=== PATIENT | male | born 1955 | race Caucasian/White ===

== ENCOUNTER → 2020-01-30 07:40 | Outpatient (BNVA) | payer OTHER, SELFPAY | PROVIDERS: Family Provider Family Medicine; PCP Family Medicine; Referring Provider Family Medicine; Visit Provider Specialist | DX: G56.03 Carpal tunnel syndrome, bilateral upper limbs (principal) | CPT/HCPCS: 95910 ==

== ENCOUNTER → 2020-06-11 13:51 | Outpatient (BNVA) | payer OTHER, SELFPAY | PROVIDERS: Family Provider Family Medicine; PCP Family Medicine; Visit Provider Internal Medicine | DX: Z11.59 Encounter for screening for other viral diseases (principal) | CPT/HCPCS: 87635 ==

== ENCOUNTER 2020-06-13 05:45 | Day surgery (SDC) | payer OTHER, SELFPAY ==
[2020-06-12 10:37] VITALS: BMI 33.3
[2020-06-13 06:01] VITALS: BP 136/77; PULSE 55; RESP 16; TEMP 36.2; O2SAT 96
[2020-06-13] MEDS: sodium chloride 0.9% 1,000 ML 30 ML IV (06:24)
--- NOTE | 2020-06-13 06:26 | ANES.PREANE2 ---
Pre-Anesthetic Assessment Pre-Anesthetic Assessment: Height/Weight: Height 1.96 m Weight 127.459 kg Temp Pulse Resp BP Pulse Ox 97.1 F L 55 L 16 136/77 96 06/13/20 06:01 06/13/20 06:01 06/13/20 06:01 06/13/20 06:01 06/13/20 06:01 Preop Diagnosis: Right carpal tunnel syndrome Proposed Procedure: Operation Date: 06/13/20 07:00 Proposed Procedures p Carpal Tunnel Release/[id number] G56.03(Right) - Lucho Sanchez MD Last intake: Intake Last Liquid Date 06/13/20 Last Liquid Time 04:30 Last Solid Date 06/12/20 Last Solid Time 18:30 Social: Social History: Tobacco (chews) and No alcohol Exam: Pre-Anes Outpt Exam: alert, oriented x 3, clear to auscultation bilaterally and regular rate & rhythm Airway: Submandibular: WNL Cervical ROM: WNL MP: 2 Dentition: Full (dentures) History/ROS: No significant history except as noted Pulmonary: Pulmonary: None reported CV/HEM: CV/HEM: Afib and HTN : : None reported Hepatic: Hepatic: None reported GI: GI: GERD (occ) Metabolic: Metabolic: DM, Hyperlipidemia and Morbid obesity Musc/skel: Musc/skel: None reported Neuropsych: Neuropsych: Neuropathy (hands) Anesthetic Plan: ASA status: 3 Anesthesia: Anesthesia Evaluation, MAC and Regional (specify below) ([place] fier[place]) Risk of > 500 ml blood loss (7ml/kg in children): No Meds/Allergies Current Medications: Current Medications Generic Name Dose Route Start Last Admin Trade Name Freq PRN Reason Stop Dose Admin Sodium Chloride 1,000 mls @ 30 ml s/hr 06/13/20 06:00 06/13/20 06:24 Sodium Chloride 0.9% IV 06/14/20 05:59 30 mls/hr .Q24H ALVA Administration Data Anesthesia Cardiac Studies: No Data to Display
--- NOTE | 2020-06-13 06:57 | W.PM.OPSUD ---
Surgery/Procedure H&P Update DATE OF PROCEDURE: June 13, 2020 DATE H&P PERFORMED: 05/24/20 PREOP DIAGNOSIS: Right carpal tunnel syndrome PLANNED PROCEDURE: Operation Date: 06/13/20 07:00 Proposed Procedures p Carpal Tunnel Release/[id number] G56.03(Right) - Lucho Sanchez MD
--- NOTE | 2020-06-13 07:05 | SUR.PREOP ---
0637 spoke with lab regarding pending results on covid test and result will be in some time today,spoke with dr byrd and he stated that covid test didn't need to be done on elective case unless pt was symptomatic
--- NOTE | 2020-06-13 07:45 | PM.OP ---
Operative Report Date of procedure: June 13, 2020 Pre-op Diagnosis: Right carpal tunnel syndrome Post-op diagnosis: same Post-op Findings: Same Procedure Done: Right carpal tunnel syndrome Pathology: none sent Surgeon: Lucho Sanchez Anesthesia: Local ([place] block) Estimated blood loss (mL): 10 Tourniquet time (min): 19 Findings: No masses or space-occupying lesions were seen within the carpal tunnel Condition: stable Disposition: same day Procedure: Patient was taken to the operating room and anesthesia provided by the anesthesia service. She was prepped and draped with the arm exposed. A timeout was performed. A 3 cm long incision was made in line with the fourth ray from the distal edge of the carpal tunnel extending proximally. The subcutaneous fat and palmar fascia was divided with a scalpel blade. Under loupe magnification the ulnar neurovascular bundle was identified distally. A hemostat could be passed under the transverse carpal ligament allowing the distal 25% to be divided. A slotted guide was then passed beneath the transverse carpal ligament and the middle 50% divided. Blunt scissors were then passed over the guide freeing the proximal ligament. The tourniquet was deflated. Hemostasis provided with electrocautery. Wound edges were infiltrated with 10 cc of a half percent Marcaine solution. Skin edges were reapproximated with 3-0 Prolene. Sterile dressings were applied. The patient was taken to the recovery room in stable condition
[2020-06-13 07:47] VITALS: BP 98/59; PULSE 63; RESP 16; TEMP 36.4; O2SAT 95
[2020-06-13 08:02] VITALS: BP 105/71; PULSE 59; RESP 15; TEMP 36.6; O2SAT 95
== END 2020-06-13 08:20 | disposition home or self-care (01) ==
PROVIDERS: Family Provider Family Medicine; PCP Family Medicine; Visit Provider Orthopaedic Surgery
PROC: (CPT 64721; principal; 2020-06-13 07:00)
DX: G56.01 Carpal tunnel syndrome, right upper limb (principal); I48.91 Unspecified atrial fibrillation; I10 Essential (primary) hypertension; E78.5 Hyperlipidemia, unspecified; E66.01 Morbid (severe) obesity due to excess calories; Z68.33 Body mass index [BMI] 33.0-33.9, adult; E11.40 Type 2 diabetes mellitus with diabetic neuropathy, unspecified
CPT/HCPCS: 64721; 12345; 36416; 82962; J0690; J2704; J3490; J7030

== ENCOUNTER → 2020-07-23 12:22 | Outpatient (BNVA) | payer OTHER, SELFPAY | PROVIDERS: Family Provider Family Medicine; PCP Family Medicine; Visit Provider Surgery | DX: Z11.59 Encounter for screening for other viral diseases (principal) | CPT/HCPCS: 87635 ==

== ENCOUNTER 2020-07-25 06:43 | Day surgery (SDC) | payer OTHER, MEDICARE, SELFPAY ==
[2020-07-24 11:21] VITALS: BMI 33.2
[2020-07-25 07:00] VITALS: BP 145/74; PULSE 56; RESP 16; TEMP 36.1; O2SAT 99
[2020-07-25 07:29] LABS: Glucose Point of Care 179 mg/dL (70-110)
[2020-07-25] MEDS: sodium chloride 0.9% 1,000 ML 30 ML IV (07:33)
--- NOTE | 2020-07-25 07:43 | P.ANESASSM_ITS ---
Pre-Anesthetic Assessment Pre-Anesthetic Assessment: Height/Weight: Height 1.96 m Weight 127.006 kg Temp Pulse Resp BP Pulse Ox 97 F L 56 L 16 145/74 99 07/25/20 07:00 07/25/20 07:00 07/25/20 07:00 07/25/20 07:00 07/25/20 07:00 Preop Diagnosis: Left carpal tunnel Proposed Procedure: Operation Date: 07/25/20 08:50 Proposed Procedures p Carpal Tunnel Release [id number] G56.03(Left) - Lucho Sanchez MD Familial anesthetic complications: none Was Beta Zach taken within 24 hours: Yes Last intake: Intake Last Liquid Date 07/25/20 Last Liquid Time 06:00 Last Solid Date 07/24/20 Last Solid Time 19:30 Social: Social History: No alcohol and No tobacco Comment: chews tobacco Exam: Pre-Anes Outpt Exam: alert, oriented x 3, clear to auscultation bilate rally and regular rate & rhythm Airway: Submandibular: WNL Cervical ROM: WNL MP: 3 Dentition: False CV/HEM: CV/HEM: Afib and HTN GI: GI: GERD Metabolic: Metabolic: DM, Hyperlipidemia and Morbid obesity Neuropsych: Neuropsych: Neuropathy Anesthetic Plan: ASA status: 3 Anesthesia: MAC and Regional (specify below) Other: cynthia block Risk of > 500 ml blood loss (7ml/kg in children): No Meds/Allergies Current Medications: Current Medications Generic Name Dose Route Start Last Admin Trade Name Freq PRN Reason Stop Dose Admin Sodium Chloride 1,000 mls @ 30 ml s/hr 07/25/20 07:00 07/25/20 07:33 Sodium Chloride 0.9% IV 07/26/20 06:59 30 mls/hr .Q24H ALVA Administration Data Anesthesia Other Labs: Laboratory Results - last 48 hr 07/25/20 07:27 POC Glucose 179 Cardiac Studies: No Data to Display
--- NOTE | 2020-07-25 08:37 | W.PM.OPSUD ---
Surgery/Procedure H&P Update DATE OF PROCEDURE: July 25, 2020 DATE H&P PERFORMED: 06/26/20 PREOP DIAGNOSIS: Left carpal tunnel PLANNED PROCEDURE: Operation Date: 07/25/20 08:50 Proposed Procedures p Carpal Tunnel Release [id number] G56.03(Left) - Lucho Sanchez MD
--- NOTE | 2020-07-25 09:29 | PM.OP ---
Operative Report Date of procedure: July 25, 2020 Pre-op Diagnosis: Left carpal tunnel Post-op diagnosis: same Post-op Findings: Same Procedure Done: Left carpal tunnel release Pathology: none sent Surgeon: Lucho Sanchez Anesthesia: Nerve Block ([place] block) Estimated blood loss (mL): 5 Tourniquet time (min): 20 Condition: stable Disposition: same day Procedure: Patient was taken to the operating room and anesthesia provided by the anesthesia service. She was prepped and draped with the arm exposed. A timeout was performed. A 3 cm long incision was made in line with the fourth ray from the distal edge of the carpal tunnel extending proximally. The subcutaneous fat and palmar fascia was divided with a scalpel blade. Under loupe magnification the ulnar neurovascular bundle was identified distally. A hemostat could be passed under the transverse carpal ligament allowing the distal 25% to be divided. A slotted guide was then passed beneath the transverse carpal ligament and the middle 50% divided. Blunt scissors were then passed over the guide freeing the proximal ligament. The tourniquet was deflated. Hemostasis provided with electrocautery. Wound edges were infiltrated with 10 cc of a half percent Marcaine solution. Skin edges were reapproximated with 3-0 Prolene. Sterile dressings were applied. The patient was taken to the recovery room in stable condition
[2020-07-25 09:31] VITALS: BP 103/57; PULSE 61; RESP 16; TEMP 36.6; O2SAT 96
[2020-07-25 09:46] VITALS: BP 116/66; PULSE 62; RESP 16; TEMP 36.6; O2SAT 96
--- NOTE | 2020-07-25 09:49 | ANE.PACU2 ---
Inpatient post-anesthesia follow up: Airway intact: Yes Vital signs: Temperature 97.8 F Pulse Rate 61 Respiratory Rate 16 Blood Pressure 103/57 Pulse Oximetry 96 Oxygen Delivery Me thod Room Air Oxygen Flow Rate Fraction of Inspir ed Oxygen Hydration adequate: Yes Nausea and vomiting: No Pain level: 1 Mental status: Baseline
== END 2020-07-25 10:00 | disposition home or self-care (01) ==
LOC: OR 06:48
PROVIDERS: Family Provider Family Medicine; PCP Family Medicine; Visit Provider Orthopaedic Surgery
PROC: (CPT 64721; principal; 2020-07-25 08:00)
DX: G56.02 Carpal tunnel syndrome, left upper limb (principal); I10 Essential (primary) hypertension; I48.91 Unspecified atrial fibrillation; E11.9 Type 2 diabetes mellitus without complications; E78.5 Hyperlipidemia, unspecified; E66.01 Morbid (severe) obesity due to excess calories; Z79.84 Long term (current) use of oral hypoglycemic drugs; Z68.33 Body mass index [BMI] 33.0-33.9, adult
CPT/HCPCS: 64721; 12345; 36416; 82962; J0690; J2704; J3010; J3490; J7030

== ENCOUNTER → 2022-06-04 12:31 | Outpatient (BNVA) | payer MEDICARE, SELFPAY | PROVIDERS: Family Provider Family Medicine; PCP Family Medicine; Visit Provider Family Medicine | DX: U07.1 COVID-19 (principal); J06.9 Acute upper respiratory infection, unspecified | CPT/HCPCS: 87426 ==

== ENCOUNTER → 2022-12-16 11:16 | Outpatient (BNVA) | payer MEDICARE, SELFPAY | PROVIDERS: Family Provider Family Medicine; PCP Family Medicine; Visit Provider Family Medicine | DX: E78.00 Pure hypercholesterolemia, unspecified (principal); I10 Essential (primary) hypertension; E11.9 Type 2 diabetes mellitus without complications | CPT/HCPCS: 80053; 80061; 83036; 85025 ==

== ENCOUNTER → 2023-03-16 09:30 | Outpatient (BNVA) | payer MEDICARE, SELFPAY | PROVIDERS: Family Provider Family Medicine; PCP Family Medicine; Visit Provider Family Medicine | DX: E78.00 Pure hypercholesterolemia, unspecified (principal); E11.9 Type 2 diabetes mellitus without complications; I10 Essential (primary) hypertension | CPT/HCPCS: 80053; 80061; 83036 ==

== ENCOUNTER → 2023-06-15 08:54 | Outpatient (BNVA) | payer MEDICARE, SELFPAY | PROVIDERS: Family Provider Family Medicine; PCP Family Medicine; Visit Provider Family Medicine | DX: E11.9 Type 2 diabetes mellitus without complications (principal); I10 Essential (primary) hypertension; E78.00 Pure hypercholesterolemia, unspecified | CPT/HCPCS: 80053; 80061; 83036 ==

== ENCOUNTER → 2023-09-15 10:36 | Outpatient (BNVA) | payer MEDICARE, SELFPAY | PROVIDERS: Family Provider Family Medicine; PCP Family Medicine; Visit Provider Family Medicine | DX: E11.9 Type 2 diabetes mellitus without complications (principal); I10 Essential (primary) hypertension; E78.00 Pure hypercholesterolemia, unspecified | CPT/HCPCS: 80053; 80061; 83036 ==

== ENCOUNTER 2023-10-28 10:22 | Emergency (ER) | payer MEDICARE, SELFPAY ==
[2023-10-28 10:22] VITALS: BP 165/73; PULSE 61; RESP 16; TEMP 36.5; O2SAT 99; BMI 28.4
[2023-10-28 10:31] LABS: Glucose Point of Care 140 mg/dL (70-110)
--- NOTE | 2023-10-28 10:54 | ECG_ITS ---
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 Measurements Intervals [place] Rate: 64 P: 51 IN: 200 QRS: 50 QRSD: 90 T: 61 QT: 406 QTc: 420 Interpretive Statements SINUS RHYTHM WITH OCCASIONAL VENTRICULAR PREMATURE COMPLEXES No previous ECG available for comparison Electronically Signed On 10-29-2023 19:16:35 WEARING APPAREL SHAKER by Patricia Manzanares M.D. [id number]
[2023-10-28 11:00] VITALS: BP 156/73; PULSE 95; RESP 26; O2SAT 96
--- NOTE | 2023-10-28 11:10 | CT_ITS ---
WS: [id number] CT HEAD TECHNIQUE: Noncontrast CT of the head obtained from the skullbase to the vertex. CLINICAL INFORMATION: sudden onset dzziness COMPARISON: None. DLP: 1119.[address] scans at [facility] use at least one of these dose optimization techniques: automated e xposure control; mA and/or kV adjustment per patient size (includes targeted exams where dose is matc hed to clinical indication); or iterative reconstruction. FINDINGS: No evidence of intracranial hemorrhage. Confluent area of low-attenuation in the RIGHT parasagittal f rontal lobe measuring 4.1 x 4.0 cm. This appears to extend to involve the cortex in some areas with m ild mass effect on the RIGHT frontal horn and RIGHT to LEFT midline shift measuring 4 mm. No hydrocep halus. Increased attenuation centrally may represent laminar necrosis. Additional small area of low-attenuation involving the RIGHT posterior temporal lobe measuring 2.2 cm . Mild small vessel changes. Mild parenchymal volume loss. Paranasal sinuses and mastoid air cells ar e well aerated. IMPRESSION: 1. Confluent area of low-attenuation in the RIGHT parasagittal frontal lobe with mild mass effect on the RIGHT frontal horn and mild RIGHT to LEFT midline shift measuring 4 mm. 2. Differential considerations include subacute ischemia versus neoplasm or metastatic disease. Ambrocio mmend further evaluation with MRI without and with gadolinium. 3. Additional area of low-attenuation in the RIGHT posterior temporal lobe measuring 2.2 cm. 4. No intracranial hemorrhage. Notified Gary Cook DO at 10/28/2023 12:12 PM. 5. No acute intracranial findings.
--- NOTE | 2023-10-28 11:10 | CT_ITS ---
WS: [id number] CTA HEAD AND NECK TECHNIQUE: Contrast enhanced CTA of the head and neck with coronal and sagittal reformatted images an d maximum intensity projection (MIP) images. NASCET criteria utilized. CLINICAL INFORMATION: sudden onset dizziness COMPARISON: None. DLP: 720.[address] scans at [facility] use at least one of these dose optimization techniques: automated e xposure control; mA and/or kV adjustment per patient size (includes targeted exams where dose is matc hed to clinical indication); or iterative reconstruction. FINDINGS: RIGHT: RIGHT common carotid artery is patent patent. No significant RIGHT ICA stenosis. Mild carotid bulb calcification. RIGHT ICA is patent to the skull base. LEFT: LEFT common carotid artery is patent. No significant LEFT ICA stenosis. LEFT ICA is patent to t he skull base. Mild LEFT carotid bulb calcification. INTRACRANIAL CTA: Codominant and patent vertebral arteries bilaterally. Basilar artery is patent. Normal vascularity to the [place] DRILL[place] territory bilaterally. Both ICAs are patent at the skull base. Mild cavernous carotid calcification. Patent anterior communi cating artery. Small LEFT A1 segment. Normal vascularity to the TAINA and MCA territories bilaterally. No evidence of flow-limiting stenosis or aneurysm. Area of RIGHT frontal low-attenuation described on the noncontrast head CT. Mastoid air cells are wel l aerated. Mild mucosal thickening in the maxillary sinuses LEFT greater than RIGHT. IMPRESSION: 1. No significant ICA stenosis. 2. No flow-limiting intracranial stenosis. 3. Both vertebral arteries are patent. 4. Area of RIGHT frontal edema with mass effect described on the noncontrast head CT. Differential c onsiderations include neoplasm versus ischemia. Recommend further evaluation with MRI without and wit h gadolinium.
--- NOTE | 2023-10-28 11:12 | W.ED.WEAKNES ---
HPI - Weakness General: Chief complaint: Weakness Stated complaint: dioriented, unable to walk Time Seen by Provider: 10/28/23 10:28 Source: patient Mode of arrival: ambulatory History of Present Illness: 68-year-old male presents emergency room with complaint of generalized weakness and severe dizziness. Began last night around 2:30 in the morning he was up and could not walk. Became increasingly comes he fell multiple times his speech has been somewhat delayed as well its persisted until he presented to the emergency room this morning. He is not on any anticoagulants. He is diabetic has a history of hypertension. He is not recently changed any medications. He is awake and alert. Initial NIH score shows some mild ataxia but otherwise is unremarkable he has persistent dizziness. MD Complaint: generalized weakness and difficulty walking Relieving factors: none Exacerbating factors: none Associated symptoms: Denies chest pain, chills, confusion, melena, decreased appetite, diaphoresis, dysuria, easy bruising, fever(s), headache(s), myalgias, nausea, rash, short of breath, syncope or vomiting Review of Systems Const: Denies: fever(s), chills or diaphoresis Card: Denies: chest pain or syncope Resp: Denies: dyspnea GI: Denies: nausea, vomiting or melena : Denies: dysuria Musc: Denies: neck pain or back pain Skin/Breast: Denies: rash Neuro: Denies: headache(s) or confusion Joseph/Lymph: Denies: easy bruising PFS ED PFSH: Medical History Hypercholesteremia Hypertension Type 2 diabetes mellitus Physical Exam Const: COMMON NORMALS: no acute distress GENERAL APPEARANCE: cooperative and comfortable ORIENTATION/CONSCIOUSNESS: Yes awake, Yes oriented to person, Yes oriented to place and Yes oriented to time HENMT: COMMON NORMALS: normocephalic, atraumatic and hearing grossly normal bilaterally HEAD & SCALP: normocephalic and atraumatic Resp: COMMON NORMALS: normal respiratory effort, No retractions, No use of accessory muscles and clear to auscultation bilaterally AUSCULTATION: clear to auscultation bilaterally Cardio: COMMON NORMALS: regular rate, regular rhythm and No murmurs present (Cardio) RATE: regular rate RHYTHM: regular rhythm GI: COMMON NORMALS: Soft to palpation and No hepatosplenomegaly present AUSCULTATION: Yes normoactive bowel sounds PALPATION: Yes Soft to palpation, No Tenderness to palpation present (GI), No Guarding due to palpation present (GI) and Yes No hepatosplenomegaly present Extremity: COMMON NORMALS: normal to inspection, capillary refill normal, no clubbing, cyanosis or edema, no calf tenderness and no pedal edema Neuro: SENSORIUM/ORIENTATION: Yes oriented to person, Yes oriented to place and Yes oriented to time Skin: COMMON NORMALS: no rashes or lesions noted GENERAL SKIN EXAM: no rashes or lesions noted Course Vital Signs: Vital signs: Vital Signs Temperature 97.7 F 10/28/23 10:22 Pulse Rate 62 10/28/23 12:39 Respiratory Rate 25 H 10/28/23 12:39 Blood Pressure 169/81 10/28/23 12:39 Pulse Oximetry 97 10/28/23 12:39 Oxygen Delivery Me thod Room Air 10/28/23 12:02 MDM - Weakness Medical Decision Making CT and CTA shows right frontal lobe and right occipital mass. There is a little bit of midline shift. I discussed with Dr. Lainez and with Dr. Carlos. They both feel that at this point there is no emergent condition. Patient is awake and alert he has significant ataxia. Reviewed findings with the patient and family. Will discharge patient home he was given 10 mg of dexamethasone here health restarted on dexamethasone 4 mg 3 times daily she take the first dose tonight. I also contacted Dr. Berkowitz made him aware of the patient's findings. He is patient's primary care doc and he will arrange for further workup and evaluation. Case management will make arrangements for MRI of the head with and without contrast. Return if is further problems. Medical Records I reviewed the patient's medical records. Lab Data I reviewed the patient's lab results. 10/28/23 11:00 10/28/23 11:57 Laboratory Results WBC 11.00 10^3/uL (3.29-11.43) 10/28/23 11:00 RBC 4.53 10^6/uL (3.85-5.65) 10/28/23 11:00 Hgb 13.10 g/dL (11.27-16.99) 10/28/23 11:00 Hct 40.1 % (37-53) 10/28/23 11:00 MCV 88.5 fl (82-101) 10/28/23 11:00 MCH 28.9 pg (27-33) 10/28/23 11:00 MCHC 32.7 g/dL (30-55) 10/28/23 11:00 RDW 13.9 % (12.1-15.1) 10/28/23 11:00 Plt Count 190 10^3/cmm (157-399) 10/28/23 11:00 MPV 11.9 fL (7.4-10.4) H 10/28/23 11:00 Neut % (Auto) 75.0 % 10/28/23 11:00 Lymph % (Auto) 16.5 % 10/28/23 11:00 [place] % (Auto) 6.1 % 10/28/23 11:00 Eos % (Auto) 1.9 % 10/28/23 11:00 Baso % (Auto) 0.3 % 10/28/23 11:00 Neut # (Auto) 8.26 10^3/uL (1.8-7.7) H 10/28/23 11:00 Lymph # (Auto) 1.8 10^3/uL (0.8-4.8) 10/28/23 11:00 [place] # (Auto) 0.7 10^3/uL (0.2-0.9) 10/28/23 11:00 Eos # (Auto) 0.2 10^3/uL (0.0-0.8) 10/28/23 11:00 Baso # (Auto) 0.0 10^3/uL (0.0-0.1) 10/28/23 11:00 Nucleated RBC % (auto) 0 % 10/28/23 11:00 Nucleated RBCs # 0.0 /100WBC 10/28/23 11:00 Sodium 140 mmol/L (136-145) 10/28/23 11:57 Potassium 4.2 mmol/L (3.5-5.1) 10/28/23 11:57 Chloride 104 mmol/L (98-107) 10/28/23 11:57 Carbon Dioxide 27 mmol/L (22-29) 10/28/23 11:57 Anion Gap 13.2 (5-19) 10/28/23 11:57 BUN 19 mg/dL (8-23) 10/28/23 11:57 Creatinine 0.9 mg/dL (0.7-1.2) 10/28/23 11:57 GFR Calculation 83.9 mL/min (90-130) L 10/28/23 11:57 Glucose 160 mg/dL (65-115) H 10/28/23 11:57 POC Glucose 140 mg/dL (70-110) H 10/28/23 10:29 Calculated Osmolality 296 mOsm/kg (285-295) H 10/28/23 11:57 Calcium 9.7 mg/dL (8.5-10.5) 10/28/23 11:57 Total Bilirubin 0.6 mg/dL (0.15-1.2) 10/28/23 11:57 AST 14 U/L (0-40) 10/28/23 11:57 ALT 13 U/L (0-41) 10/28/23 11:57 Alkaline Phosphatase 41 U/L (40-130) 10/28/23 11:57 Troponin T Baseline 19 ng/L (0-15) H 10/28/23 11:00 Troponin T 120 Minute 18.89 ng/L (0-15) H 10/28/23 13:06 Delta Troponin T -0.11 ABS# (0-10) L 10/28/23 13:06 Total Protein 7.1 g/dL (6.6-8.7) 10/28/23 11:57 Albumin 4.4 g/dL (3.5-5.2) 10/28/23 11:57 Globulin 2.7 g/dL (1.3-4.6) 10/28/23 11:57 All radiology interpretation(s) finalized by discharge Discharge Plan Discharge Patient Disposition: Home Clinical Impression: Frontal mass of brain, Mass of occipital region Condition: Stable Prescriptions: New dexamethasone 4 mg tablet 4 mg PO TID Qty: 90 0RF No Action metoprolol tartrate 50 mg tablet 50 mg PO BID Qty: 60 11RF metformin 1,000 mg tablet 1,000 mg PO BID Qty: 60 11RF timolol maleate 0.5 % drops 1 drp ophthalmic (eye) DAILY Vyzulta 0.024 % drops 1 drp ophthalmic (eye) DAILY Adult Aspirin Regimen 81 mg tablet,delayed release (DR/EC) 81 mg PO QAM glimepiride 4 mg tablet 4 mg PO BID lovastatin 20 mg tablet 20 mg PO QAM lisinopril 40 mg tablet 40 mg PO QAM Discharge Orders: Discharge ED (Routine); Ordered 10/28/23 Ordered By: Gary Cook Other Ambulatory Orders: DME: Wheelchair (Order) Location: None Selected Ordered By: Gary Cook Referrals: Pool Hutchinson MD [Primary Care Provider] - Patient Instructions: Opioid Safety, Pain Management Coding Level of Care Code ED Plastic 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
[2023-10-28 11:41] LABS: Basophils % 0.3 %; Eosinophils # 0.2 10^3/uL (0.0-0.8); Eosinophils % 1.9 %; Hematocrit 40.1 % (37-53); Lymphocytes # 1.8 10^3/uL (0.8-4.8); Lymphocytes % 16.5 %; Mean Corpuscular HGB Conc 32.7 g/dL (30-55); Mean Corpuscular Hemoglobin 28.9 pg (27-33); Mean Corpuscular Volume 88.5 fl (82-101); Mean Platelet Volume 11.9 fL (7.4-10.4); Monocytes # 0.7 10^3/uL (0.2-0.9); Monocytes % 6.1 %; Neutrophils # 8.26 10^3/uL (1.8-7.7); Nucleated Red Blood Cells % 0 %; Platelet Count 190 10^3/cmm (157-399); Red Blood Count 4.53 10^6/uL (3.85-5.65); Red Cell Distribution Width 13.9 % (12.1-15.1)
[2023-10-28] MEDS: iohexol 350 mg/mL 500 mL Btl (per mL) IV (12:01)
[2023-10-28 12:02] VITALS: BP 167/73; PULSE 62; RESP 25; O2SAT 100
[2023-10-28 12:04] LABS: Troponin(5th) Baseline 19 ng/L (0-15)
--- NOTE | 2023-10-28 12:16 | ECG_ITS ---
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 Measurements Intervals [place] Rate: 63 P: 71 [place]: 221 QRS: 60 QRSD: 87 T: 64 QT: 404 QTc: 415 Interpretive Statements SINUS RHYTHM WITH FIRST DEGREE AV BLOCK WITH OCCASIONAL VENTRICULAR PREMATURE COMPLEXES Compared to ECG 10/28/2023 10:54:41 First degree AV block now present Electronically Signed On 10-29-2023 19:37:05 MANAGER OF DEVELOPMENT by Patricia Manzanares M.D. [id number]
[2023-10-28 12:21] LABS: Alanine Aminotransferase 13 U/L (0-41); Albumin Level 4.4 g/dL (3.5-5.2); Alkaline Phosphatase 41 U/L (40-130); Anion Gap 13.2 (5-19); Aspartate Amino Transferase 14 U/L (0-40); Blood Urea Nitrogen 19 mg/dL (8-23); Calcium 9.7 mg/dL (8.5-10.5); Carbon Dioxide 27 mmol/L (22-29); Chloride 104 mmol/L (98-107); Globulin 2.7 g/dL (1.3-4.6); Glomerular Filtration Rate 83.9 mL/min (90-130); Glucose 160 mg/dL (65-115); Osmolality Calculated 296 mOsm/kg (285-295); Potassium 4.2 mmol/L (3.5-5.1); Sodium 140 mmol/L (136-145); Total Bilirubin 0.6 mg/dL (0.15-1.2); Total Protein 7.1 g/dL (6.6-8.7)
[2023-10-28 12:39] VITALS: BP 169/81; PULSE 62; RESP 25; O2SAT 97
[2023-10-28] MEDS: dexamethasone 10 mg/mL INJ IM (12:42)
[2023-10-28 13:25] LABS: Troponin 5 2HR 18.89 ng/L (0-15)
[2023-10-28 13:29] LABS: Troponin 5 2HR Delta -0.11 ABS# (0-10)
== END 2023-10-28 13:20 | disposition home or self-care (01) ==
PROVIDERS: Emergency Medicine; Emergency Provider Family Medicine; PCP Family Medicine
DX: G93.9 Disorder of brain, unspecified (principal); Z79.82 Long term (current) use of aspirin; Z79.84 Long term (current) use of oral hypoglycemic drugs; I10 Essential (primary) hypertension; E11.9 Type 2 diabetes mellitus without complications
CPT/HCPCS: 36415; 36416; 70450; 70496; 70498; 80053; 82962; 84484; 85025; 93005; 99285; J1100; Q9967

== ENCOUNTER → 2023-12-03 08:44 | Outpatient (BNVA) | payer MEDICARE, SELFPAY | PROVIDERS: PCP Family Medicine; Visit Provider Podiatrist Foot & Ankle Surgery | DX: E11.42 Type 2 diabetes mellitus with diabetic polyneuropathy (principal); M20.40 Other hammer toe(s) (acquired), unspecified foot; L60.3 Nail dystrophy; Z79.84 Long term (current) use of oral hypoglycemic drugs | CPT/HCPCS: 11721; 99203 ==

== ENCOUNTER 2023-12-08 04:40 | Emergency (ER) | payer MEDICARE, SELFPAY ==
[2023-12-08 04:47] VITALS: BP 134/99; PULSE 75; RESP 16; TEMP 36; O2SAT 99; BMI 28.8
--- NOTE | 2023-12-08 05:01 | CTR_ITS ---
PROCEDURE INFORMATION: Exam: CT Head Without Contrast Exam date and time: 12/08/2023 5:11 AM Age: 68 years old Clinical indication: Injury or trauma; Concussion/head injury; Injury details: Fall prev stroke 1 month ago; Additional info: Fall, anticoagulation, brain tumor TECHNIQUE: Imaging protocol: Computed tomography of the head without contrast. Radiation optimization: All CT scans at this facility use at least one of these dose optimization techniques: automated exposure control; mA and/or kV adjustment per patient size (includes targeted exams where dose is matched to clinical indication); or iterative reconstruction. COMPARISON: CT angio headneck* [id number] 10/28/2023 11:34 AM RADIATION DOSE METRICS: Total DLP (mGy-cm): 1092 FINDINGS: Brain: Redemonstration of a focal area heterogeneous attenuation in the right frontal region, decrease compared to prior study. There is adjacent encephalomalacia of the superior right frontal gyrus. Periventricular and deep white matter hypodensities compatible with chronic microvascular ischemic changes. No acute intracranial hemorrhage. No midline shift. Cerebral ventricles: No ventriculomegaly. Paranasal sinuses: Visualized sinuses are unremarkable. No fluid levels. Mastoid air cells: No mastoid effusion. Bones/joints: No acute fracture. Soft tissues: Unremarkable. CT/CT head wo con* [id number] IMPRESSION: 1. No acute intracranial abnormality. 2. Chronic appearing changes noted in the right frontal region, correlate with history of prior infarct and/or neoplasm.
--- NOTE | 2023-12-08 05:02 | W.ED.FALL ---
HPI - Fall General: Chief Complaint: Fall Stated Complaint: fell, Time Seen by Provider: 12/08/23 04:43 History of Present Illness: Patient presents to the ER after a fall. Patient states he was up using the bathroom and holding onto handrail and the next and he knew he was leaned forward falling over the toilet. Patient said his heart may have been racing at the time. Patient does have a history of A-fib. Patient denies syncope, blacking out, losing consciousness,. On for sure if he hit his head but he does have a current brain tumor and is on aspirin 81 mg. Patient does have abrasion up his left side of his ribs and left forearm. Patient denies pain anywhere else. After reviewing the chart his PCP Dr. Berkowitz noted that he was just released from the hospital [place] before his last visit and he was sent down there for strokelike symptoms to workup this brain mass. And per his note it looks like they settled on a diagnosis of a hemorrhagic stroke. Review of Systems General: Reports: 10 or more systems reviewed and unremarkable except in HPI and below PFSH ED PFSH: Medical History Hemorrhagic stroke Type 2 diabetes mellitus Hypertension Hypercholesteremia Physical Exam Const: COMMON NORMALS: no acute distress, average body habitus, patient oriented x3, no limitations, healthy appearing, alert and well nourished HENMT: COMMON NORMALS: normocephalic, atraumatic, hearing grossly normal bilaterally, external ears normal, Normal external nose present, moist oral mucous membranes and oropharynx normal HEAD & SCALP: normocephalic and atraumatic NOSE: Normal external nose present EXTERNAL EAR: Yes external ears normal Neck/C-Spine: COMMON NORMALS: full ROM, no lymphadenopathy, supple, no meningeal signs, no JVD and Thyroid normal THYROID: Thyroid normal Chest: COMMONS NORMALS: normal palpation of entire chest wall; negative for normal inspection of the chest (Abrasions on left lateral chest wall) Cardio: COMMON NORMALS: no JVD, regular rate, regular rhythm, S1 normal heart sound present, S2 normal heart sound present, No gallops present (Cardio), No clicks present (Cardio), No murmurs present (Cardio) and No rub (Cardio) RATE: regular rate RHYTHM: regular rhythm HEART SOUNDS: S1 normal heart sound present and S2 normal heart sound present GI: COMMON NORMALS: Normal to inspection, nondistended, normoactive bowel sounds present, Soft to palpation, non-tender, No hepatosplenomegaly present and no masses PALPATION: Yes Soft to palpation and Yes No hepatosplenomegaly present Extremity: OTHER: Abrasion noted to left wrist area Neuro: COMMON NORMALS: patient oriented x3 SENSORIUM/ORIENTATION: Yes alert MENINGEAL SIGNS: Yes no meningeal signs Course Vital Signs: Vital signs: Vital Signs Temperature 96.8 F L 12/08/23 04:47 Pulse Rate 88 12/08/23 05:49 Respiratory Rate 18 12/08/23 05:49 Blood Pressure 134/99 12/08/23 05:25 Pulse Oximetry 97 12/08/23 05:49 Oxygen Delivery Me thod Room Air 12/08/23 04:47 MDM - Fall Medical Decision Making Patient has a head CT that was unchanged from previous 1. EKG was performed and did show atrial flutter. Wounds were cleaned and dressed by nursing. Patient be discharged home to follow-up with PCP on an as-needed basis. Differential Diagnosis Unlikely syncope, dislocation of shoulder region, fracture of wrist, compression fracture, concussion with loss of consciousness or concussion without loss of consciousness Medical Records I reviewed the patient's medical records. Lab Data I reviewed the patient's lab results. Radiology Impressions Head CT 12/08/23 05:01 IMPRESSION: 1. No acute intracranial abnormality. 2. Chronic appearing changes noted in the right frontal region, correlate with history of prior infarct and/or neoplasm. All radiology interpretation(s) finalized by discharge EKG Data EKG 1: I personally reviewed and interpreted this EKG as follows: EKG interpretation date: 12/08/23 EKG interpretation time: 05:04 Prior EKG tracings: available for review Interpretation: Ventricular rate 78 beats minute, QRS duration 94, QTc of 404, atrial flutter/tachycardia Discharge Plan Discharge Patient Disposition: Home Clinical Impression: Atrial fib/flutter, transient, Abrasion Fall Qualifiers: Encounter type: initial encounter Qualified Code(s): W19.XXXA - Unspecified fall, initial encounter Condition: Stable Prescriptions: No Action metoprolol tartrate 50 mg tablet 50 mg PO BID Qty: 60 11RF atorvastatin 40 mg tablet 40 mg PO DAILY brimonidine 0.2 % drops ophthalmic (eye) (DME) Diabetic Shoes with 3 pairs of inserts See Rx Instructions .Route .MEDSUPPLY Qty: 1 0RF Rx Instructions: As directed by the Shoe Anali metformin 1,000 mg tablet 1,000 mg PO BID Qty: 60 11RF timolol maleate 0.5 % drops 1 drp ophthalmic (eye) DAILY Vyzulta 0.024 % drops 1 drp ophthalmic (eye) DAILY Adult Aspirin Regimen 81 mg tablet,delayed release (DR/EC) 81 mg PO QAM glimepiride 4 mg tablet 4 mg PO BID lisinopril 40 mg tablet 40 mg PO QAM dexamethasone 4 mg tablet 4 mg PO TID Qty: 90 0RF Discharge Orders: Discharge ED (Routine); Ordered 12/08/23 Ordered By: Laureano Warner Referrals: Pool Hutchinson MD [Primary Care Provider] - 1 week Patient Instructions: Abrasion, Atrial Flutter (ED) Activity Restrictions/Additional Instructions: Your head CT did not show any acute changes. Your EKG did show atrial flutter. Please keep your abrasions clean and dry and change dressing as needed. Please follow-up with your family practice physician within next 7 days for further evaluation and treatment. Coding Level of Care Code ED Care Management Associate for Yaa Rubio
--- NOTE | 2023-12-08 05:04 | ECG_ITS ---
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 Measurements Intervals [place] Rate: 78 P: 0 ND: 0 QRS: 80 QRSD: 94 T: 36 QT: 371 QTc: 424 Interpretive Statements ATRIAL FLUTTER Compared to ECG 10/28/2023 12:16:42 Sinus rhythm no longer present First degree AV block no longer present Electronically Signed On 12-08-2023 18:31:47 RANGE AIDE by Tulio Vides M.D. [id number]
[2023-12-08 05:25] VITALS: BP 134/99; O2SAT 99
[2023-12-08 05:49] VITALS: PULSE 88; RESP 18; O2SAT 97
== END 2023-12-08 05:50 | disposition home or self-care (01) ==
PROVIDERS: Emergency Provider Emergency Medicine; PCP Family Medicine
DX: I48.91 Unspecified atrial fibrillation (principal); S60.812A Abrasion of left wrist, initial encounter; I48.92 Unspecified atrial flutter; Z79.82 Long term (current) use of aspirin; Z79.84 Long term (current) use of oral hypoglycemic drugs; E11.9 Type 2 diabetes mellitus without complications; I10 Essential (primary) hypertension; Z86.73 Personal history of transient ischemic attack (TIA), and cerebral infarction without residual deficits; W18.39XA Other fall on same level, initial encounter
CPT/HCPCS: 70450; 93005; 99284

== ENCOUNTER 2023-12-23 21:29 | Emergency (ER) | payer MEDICARE, SELFPAY ==
[2023-12-23 21:43] VITALS: BP 165/96; PULSE 132; RESP 16; TEMP 37.1; O2SAT 95; BMI 24.9
--- NOTE | 2023-12-23 21:43 | XRR_ITS ---
PROCEDURE INFORMATION: Exam: XR Chest Exam date and time: 12/23/2023 10:20 PM Age: 68 years old Clinical indication: Other: Palpitations TECHNIQUE: Imaging protocol: Radiologic exam of the chest. Views: 1 view. COMPARISON: CT angio headneck* [id number] 10/28/2023 11:34 AM FINDINGS: Lungs: Unremarkable. No consolidation. Pleural spaces: Unremarkable. No pleural effusion. No pneumothorax. Heart/Mediastinum: Unremarkable. No cardiomegaly. Bones/joints: Unremarkable. XR/XR chest 1V portable [id number] IMPRESSION: No acute findings.
--- NOTE | 2023-12-23 21:43 | ECG_ITS ---
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 Measurements Intervals [place] Rate: 125 P: 0 VT: 0 QRS: 45 QRSD: 96 T: 27 QT: 294 QTc: 424 Interpretive Statements ATRIAL FIBRILLATION WITH RAPID VENTRICULAR RESPONSE Compared to ECG 12/08/2023 05:04:27 Atrial flutter no longer present Electronically Signed On 12-24-2023 10:02:28 HEEL BRUSHER by Tulio Vides M.D. [id number] f
[2023-12-23 21:48] LABS: Basophils % 0.5 %; Eosinophils # 0.4 10^3/uL (0.0-0.8); Eosinophils % 4.1 %; Hematocrit 41.6 % (37-53); Lymphocytes # 2.5 10^3/uL (0.8-4.8); Lymphocytes % 29.1 %; Mean Corpuscular HGB Conc 33.9 g/dL (30-55); Mean Corpuscular Hemoglobin 29.1 pg (27-33); Mean Platelet Volume 10.9 fL (7.4-10.4); Monocytes # 0.6 10^3/uL (0.2-0.9); Neutrophils # 4.99 10^3/uL (1.8-7.7); Neutrophils % 59.1 %; Nucleated Red Blood Cells % 0 %; Platelet Count 180 10^3/cmm (157-399); Red Blood Count 4.84 10^6/uL (3.85-5.65); Red Cell Distribution Width 13.2 % (12.1-15.1); White Blood Count 8.45 10^3/uL (3.29-11.43)
[2023-12-23 22:00] LABS: INR 0.86 (0.8-1.2)
[2023-12-23 22:01] LABS: Partial Thromboplastin Time 27.1 SECONDS (23.9-36.7)
[2023-12-23 22:07] LABS: Troponin(5th) Baseline 11 ng/L (0-15)
--- NOTE | 2023-12-23 22:13 | W.ED.CHESTPA ---
HPI - Chest Pain General: Chief Complaint: Chest Pain Stated Complaint: Heart doc sent, cp Time Seen by Provider: 12/23/23 21:43 History of Present Illness: 68-year-old male presents to the emergency department with concerns of elevated heart rate. He states he was provided a registered nurse cardiac today and when he felt his heart racing this evening he did receive a call from cardiology and advised him to come to the emergency department for evaluation. Patient states that he started having chest discomfort as he felt his heart was having significant extra beats and also felt like it was having episodes of a racing heart he states that his discomfort was a 2 out of 10 in the center of his chest and felt like it was an intermittent pressure because of his fast beating heart. Associated symptoms: Reports palpitations Review of Systems General: Reports: 10 or more systems reviewed and unremarkable except in HPI and below Card: Reports: chest pain, palpitations and irregular heart rhythm [facility] ED PFSH: Medical History Hemorrhagic stroke Type 2 diabetes mellitus Hypertension Hypercholesteremia Physical Exam Narrative: EXAM NARRATIVE: Constitutional: the patient appears well nourished and of normal development. Vital signs as documented. No acute distress at present. Alert and oriented-to person, place, time and situation. Head, eyes, ears, nose, mouth, throat: Normocephalic, atraumatic. Pupils-equal, round, reactive to light. No scleral icterus. Normal-appearing external ears. Normal appearing nasal turbinates, no drainage. No obvious oral lesions, posterior oropharynx without erythema or exudates. Neck: Supple, trachea is midline, no lymphadenopathy, no jugular venous distension, thyromegaly, or carotid bruits. Carotid upstrokes are brisk bilaterally. Lungs: clear to auscultation to all lung siddiqui. Symmetrical rise and fall of chest, no obvious signs of increased work of breathing at present. Cardiac: Atrial fibrillation with rapid ventricular response positive S1, S2. No murmurs, rubs or gallops that I can appreciate Abdomen: Soft, non-tender to palpation, normal active bowel sounds to all quadrants. No palpable masses, no organomegaly and abdominal bruits. Extremities: 2+ pulses in the upper extremities that are equal bilaterally, 2+ pulses in the lower extremities that are equal bilaterally. Non-edematous. Moves all extremities well, sensation to all extremities are noted. Skin: Warm, dry, intact. Course Vital Signs: Vital signs: Vital Signs Temperature 98.7 F 12/23/23 21:43 Pulse Rate 87 12/23/23 23:48 Respiratory Rate 22 H 12/23/23 23:48 Blood Pressure 119/82 12/23/23 23:48 Pulse Oximetry 96 12/23/23 23:48 Oxygen Delivery Me thod Room Air 12/23/23 23:30 MDM - Chest Pain Medical Decision Making Physical exam completed and documented, I will obtain serial cardiac enzymes, serial twelve-lead EKGs, chest x-ray, CBC, CMP, urinalysis, B-type natriuretic peptide, PT/PTT/INR, and a chest x-ray. I will provide p.o. and IV Lopressor. I have reviewed previous and pertinent medical records for assist in obtaining beneficial medical information to improved the care and treatment of the patient. Medical Records I reviewed the patient's medical records. Lab Data I reviewed the patient's lab results. 12/23/23 21:41 12/23/23 21:41 Radiology Impressions Chest X-Ray 12/23/23 21:43 IMPRESSION: No acute findings. Laboratory Results WBC 8.45 10^3/uL (3.29-11.43) 12/23/23 21:41 RBC 4.84 10^6/uL (3.85-5.65) 12/23/23 21:41 Hgb 14.10 g/dL (11.27-16.99) 12/23/23 21:41 Hct 41.6 % (37-53) 12/23/23 21:41 MCV 86.0 fl (82-101) 12/23/23 21:41 MCH 29.1 pg (27-33) 12/23/23 21:41 MCHC 33.9 g/dL (30-55) 12/23/23 21:41 RDW 13.2 % (12.1-15.1) 12/23/23 21:41 Plt Count 180 10^3/cmm (157-399) 12/23/23 21:41 MPV 10.9 fL (7.4-10.4) H 12/23/23 21:41 Neut % (Auto) 59.1 % 12/23/23 21:41 Lymph % (Auto) 29.1 % 12/23/23 21:41 Harrison % (Auto) 7.0 % 12/23/23 21:41 Eos % (Auto) 4.1 % 12/23/23 21:41 Baso % (Auto) 0.5 % 12/23/23 21:41 Neut # (Auto) 4.99 10^3/uL (1.8-7.7) 12/23/23 21:41 Lymph # (Auto) 2.5 10^3/uL (0.8-4.8) 12/23/23 21:41 Harrison # (Auto) 0.6 10^3/uL (0.2-0.9) 12/23/23 21:41 Eos # (Auto) 0.4 10^3/uL (0.0-0.8) 12/23/23 21:41 Baso # (Auto) 0.0 10^3/uL (0.0-0.1) 12/23/23 21:41 Nucleated RBC % (auto) 0 % 12/23/23 21: Nucleated RBCs # 0.0 /100WBC 12/23/23 21:41 PT 11.90 SECONDS (12.1-14.9) L 12/23/23 21:41 INR 0.86 (0.8-1.2) 12/23/23 21:41 APTT 27.1 SECONDS (23.9-36.7) 12/23/23 21:41 Sodium 141 mmol/L (136-145) 12/23/23 21:41 Potassium 3.8 mmol/L (3.5-5.1) 12/23/23 21:41 Chloride 104 mmol/L (98-107) 12/23/23 21:41 Carbon Dioxide 24 mmol/L (22-29) 12/23/23 21:41 Anion Gap 16.8 (5-19) 12/23/23 21:41 BUN 22 mg/dL (8-23) 12/23/23 21:41 Creatinine 1.0 mg/dL (0.7-1.2) 12/23/23 21:41 GFR Calculation 74.3 mL/min (90-130) L 12/23/23 21:41 Glucose 292 mg/dL (65-115) H 12/23/23 21:41 Calculated Osmolality 306 mOsm/kg (285-295) H 12/23/23 21:41 Calcium 9.4 mg/dL (8.5-10.5) 12/23/23 21:41 Total Bilirubin 0.3 mg/dL (0.15-1.2) 12/23/23 21:41 AST 15 U/L (0-40) 12/23/23 21:41 ALT 23 U/L (0-41) 12/23/23 21:41 Alkaline Phosphatase 60 U/L (40-130) 12/23/23 21:41 Troponin T Baseline 11 ng/L (0-15) 12/23/23 21:41 Troponin T 120 Minute 17.23 ng/L (0-15) H 12/23/23 22:43 Delta Troponin T 6.23 ABS# (0-10) 12/23/23 22:43 NT-Pro-B Natriuret Pep 308 pg/mL (0-125) H 12/23/23 21:41 Total Protein 7.2 g/dL (6.6-8.7) 12/23/23 21:41 Albumin 4.1 g/dL (3.5-5.2) 12/23/23 21:41 Globulin 3.1 g/dL (1.3-4.6) 12/23/23 21:41 All radiology interpretation(s) finalized by discharge EKG Data EKG 1: Interpretation: Twelve-lead EKG obtained at 2134 and reviewed at 2138 demonstrates atrial fibrillation with a rapid ventricular response at a rate of 125 bpm, QRS duration is 96 QT 294, QTc [address] elevation or depression to demonstrate acute ischemia or infarction at present Discharge Plan Discharge Patient Disposition: Home Clinical Impression: Atrial fibrillation with rapid ventricular response, Palpitations Condition: Stable Prescriptions: No Action metoprolol tartrate 50 mg tablet 50 mg PO BID Qty: 60 11RF atorvastatin 40 mg tablet 40 mg PO DAILY brimonidine 0.2 % drops ophthalmic (eye) (DME) Diabetic Shoes with 3 pairs of inserts See Rx Instructions .Route .MEDSUPPLY Qty: 1 0RF Rx Instructions: As directed by the Shoe Anali metformin 1,000 mg tablet 1,000 mg PO BID Qty: 60 11RF timolol maleate 0.5 % drops 1 drp ophthalmic (eye) DAILY Vyzulta 0.024 % drops 1 drp ophthalmic (eye) DAILY Adult Aspirin Regimen 81 mg tablet,delayed release (DR/EC) 81 mg PO QAM glimepiride 4 mg tablet 4 mg PO BID lisinopril 40 mg tablet 40 mg PO QAM dexamethasone 4 mg tablet 4 mg PO TID Qty: 90 0RF Discharge Orders: Discharge ED (Routine); Ordered 12/24/23 Ordered By: Jordan Santos Referrals: Pool Hutchinson MD [Primary Care Provider] - Discharge Diet: Low Salt Discharge Activity: Resume usual activity Patient Instructions: Opioid Safety, Pain Management Activity Restrictions/Additional Instructions: Activity Restrictions/Additional Instructions: Thank you for choosing [facility] for your healthcare needs today. Please realize that you were seen in the Emergency Department and that we are providing you with an emergency medical screening exam and this may not be a complete and all inclusive of all the testing and or medical work-up that you may need to determine your ailment or severity of your illness. It is very important that you follow-up as instructed with your Primary care provider or Specialist for additional evaluation and to discuss your medical treatment plan. You may return to the Emergency Department should you have concerns or if your condition changes or worsens in any way. Coding Level of Care Code ED Assistant Professor Of English for Yaa Rubio
[2023-12-23 22:15] LABS: Alanine Aminotransferase 23 U/L (0-41); Albumin Level 4.1 g/dL (3.5-5.2); Alkaline Phosphatase 60 U/L (40-130); Anion Gap 16.8 (5-19); Aspartate Amino Transferase 15 U/L (0-40); Blood Urea Nitrogen 22 mg/dL (8-23); Calcium 9.4 mg/dL (8.5-10.5); Carbon Dioxide 24 mmol/L (22-29); Chloride 104 mmol/L (98-107); Globulin 3.1 g/dL (1.3-4.6); Glomerular Filtration Rate 74.3 mL/min (90-130); Glucose 292 mg/dL (65-115); NT Pro B Type Natriuretic Pept 308 pg/mL (0-125); Osmolality Calculated 306 mOsm/kg (285-295); Potassium 3.8 mmol/L (3.5-5.1); Sodium 141 mmol/L (136-145); Total Bilirubin 0.3 mg/dL (0.15-1.2); Total Protein 7.2 g/dL (6.6-8.7)
[2023-12-23 22:19] VITALS: BP 165/96; PULSE 114; RESP 24; O2SAT 96
[2023-12-23] MEDS: metoprolol tartrate 25 mg Tablet 12.5 MG PO (22:25)
[2023-12-23 22:40] VITALS: BP 132/71; PULSE 124; O2SAT 96
[2023-12-23] MEDS: metoprolol tartrate 1 mg/1 mL SDV 5 mL 5 MG IVP (23:21)
[2023-12-23 23:30] VITALS: BP 136/78; PULSE 87; O2SAT 96
[2023-12-23 23:48] VITALS: BP 119/82; PULSE 87; RESP 22; O2SAT 96
[2023-12-24 00:03] LABS: Troponin 5 2HR 17.23 ng/L (0-15); Troponin 5 2HR Delta 6.23 ABS# (0-10)
[2023-12-24 00:45] VITALS: BP 133/90; PULSE 86; RESP 23; O2SAT 94
[2023-12-24 00:58] VITALS: BP 133/90; PULSE 86; RESP 23; O2SAT 94
== END 2023-12-24 01:00 | disposition home or self-care (01) ==
PROVIDERS: Emergency Provider Internal Medicine; PCP Family Medicine
DX: I48.20 Chronic atrial fibrillation, unspecified (principal); R00.2 Palpitations; Z79.82 Long term (current) use of aspirin; Z79.84 Long term (current) use of oral hypoglycemic drugs; E11.9 Type 2 diabetes mellitus without complications; I10 Essential (primary) hypertension; Z86.73 Personal history of transient ischemic attack (TIA), and cerebral infarction without residual deficits
CPT/HCPCS: 36415; 71045; 80053; 83880; 84484; 85025; 85610; 85730; 93005; 96374; 99285; J3490

== ENCOUNTER 2024-01-09 23:15 | Emergency (ER) | payer MEDICARE, SELFPAY ==
[2024-01-09] VITALS (7 sets, daily range): BP systolic 168–182; BP diastolic 69–74; PULSE 59–67; RESP 15–24; TEMP 36.7; O2SAT 95–98; BMI 29.5
--- NOTE | 2024-01-09 23:30 | ED_ITS ---
Documented by User: FAIZA Crawford 01/13/24 13:07 HPI - Dizziness 2 General: Chief Complaint: Dizziness Stated Complaint: headache/ dizzy Time Seen by Provider: 01/09/24 23:30 History of Present Illness: HPI Narrative: 68-year-old male patient comes in [facility] for complaints of headache today followed by an episode of dizziness when he went to go to [facility]. Patient has a history of hemorrhagic stroke in October. Patient appears nontoxic. Patient skin is warm and dry. Patient also has a history of atrial fibs. Patient appears nontoxic. Patient appears no pain. Review of Systems 2 General: Reports: 10 or more systems reviewed and unremarkable except in HPI and below PFSH ED 2 PFSH: Medical History Hemorrhagic stroke Type 2 diabetes mellitus Hypertension Hypercholesteremia Physical Exam 2 Const: COMMON NORMALS: alert HENMT: COMMON NORMALS: normocephalic HEAD & SCALP: normocephalic Neck/C-Spine: COMMON NORMALS: full ROM Resp: COMMON NORMALS: normal respiratory effort and clear to auscultation bilaterally AUSCULTATION: clear to auscultation bilaterally Cardio: COMMON NORMALS: regular rate RATE: regular rate GI: COMMON NORMALS: Soft to palpation PALPATION: Yes Soft to palpation Back/Pelvis: COMMON NORMALS: thoracic and lumbar spine normal to inspection Extremity: COMMON NORMALS: no pedal edema Neuro: SENSORIUM/ORIENTATION: Yes alert Skin: COMMON NORMALS: turgor normal GENERAL SKIN EXAM: turgor normal Course 2 Vital Signs: Vital signs: Vital Signs Temperature 98.0 F 01/10/24 01:42 Pulse Rate 55 L 01/10/24 01:42 Respiratory Rate 19 H 01/10/24 01:42 Blood Pressure 144/77 01/10/24 01:42 Pulse Oximetry 97 01/10/24 01:42 Oxygen Delivery Me thod Room Air 01/10/24 00:45 MDM - Dizziness Medical Decision Making 68-year-old male patient comes in today with complaints of headache all day with episodes of dizziness tonight starting. Patient had a history of a hemorrhagic stroke in October. Patient has had normal recovery. No long-term deficits have been noted. No focal neural deficits are noted. Patient moves all extremities well. Pupils are equal and reactive. Respirations are even lungs are clear to auscultation. Patient does have an elevated blood pressure of 182/74. Differential diagnosis includes but not limited to intracranial bleed, CVA, anxiety, status post stroke syndrome, elevated blood pressure. CBC and CMP was unremarkable. Blood pressures showed no orthostatic hypotension. EKG showed a sinus rhythm with occasional PVC. Patient was treated for headache with Reglan. Patient was recommended to follow-up with his neurology specialist. Lab Data 01/09/24 23:35 01/09/24 23:[address] 01/09/24 23:33 IMPRESSION: 1. Negative for intracranial hemorrhage or mass effect. 2. Right frontal chronic appearing encephalomalacia similar to prior exam. 3. Moderate diffuse white matter disease likely reflecting chronic microvascular ischemic changes. Laboratory Results WBC 7.71 10^3/uL (3.29-11.43) 01/09/24 23:35 RBC 4.33 10^6/uL (3.85-5.65) 01/09/24 23:35 Hgb 12.70 g/dL (11.27-16.99) 01/09/24 23:35 Hct 37.2 % (37-53) 01/09/24 23:35 MCV 85.9 fl (82-101) 01/09/24 23:35 MCH 29.3 pg (27-33) 01/09/24 23:35 MCHC 34.1 g/dL (30-55) 01/09/24 23:35 RDW 13.2 % (12.1-15.1) 01/09/24 23:35 Plt Count 160 10^3/cmm (157-399) 01/09/24 23:35 MPV 10.5 fL (7.4-10.4) H 01/09/24 23:35 Neut % (Auto) 50.4 % 01/09/24 23:35 Lymph % (Auto) 37.5 % 01/09/24 23:35 Hinds % (Auto) 6.2 % 01/09/24 23:35 Eos % (Auto) 5.4 % 01/09/24 23:35 Baso % (Auto) 0.4 % 01/09/24 23:35 Neut # (Auto) 3.88 10^3/uL (1.8-7.7) 01/09/24 23:35 Lymph # (Auto) 2.9 10^3/uL (0.8-4.8) 01/09/24 23:35 Hinds # (Auto) 0.5 10^3/uL (0.2-0.9) 01/09/24 23:35 Eos # (Auto) 0.4 10^3/uL (0.0-0.8) 01/09/24 23:35 Baso # (Auto) 0.0 10^3/uL (0.0-0.1) 01/09/24 23:35 Nucleated RBC % (auto) 0 % 01/09/24 23:35 Nucleated RBCs # 0.0 /100WBC 01/09/24 23:35 Sodium 140 mmol/L (136-145) 01/09/24 23:35 Potassium 3.7 mmol/L (3.5-5.1) 01/09/24 23:35 Chloride 103 mmol/L (98-107) 01/09/24 23:35 Carbon Dioxide 22 mmol/L (22-29) 01/09/24 23:35 Anion Gap 18.7 (5-19) 01/09/24 23:35 BUN 18 mg/dL (8-23) 01/09/24 23:35 Creatinine 1.0 mg/dL (0.7-1.2) 01/09/24 23:35 GFR Calculation 74.3 mL/min (90-130) L 01/09/24 23:35 Glucose 167 mg/dL (65-115) H 01/09/24 23:35 Calculated Osmolality 296 mOsm/kg (285-295) H 01/09/24 23:35 Calcium 8.9 mg/dL (8.5-10.5) 01/09/24 23:35 Total Bilirubin 0.3 mg/dL (0.15-1.2) 01/09/24 23:35 AST 17 U/L (0-40) 01/09/24 23:35 ALT 27 U/L (0-41) 01/09/24 23:35 Alkaline Phosphatase 51 U/L (40-130) 01/09/24 23:35 Total Protein 6.7 g/dL (6.6-8.7) 01/09/24 23:35 Albumin 4.0 g/dL (3.5-5.2) 01/09/24 23:35 Globulin 2.7 g/dL (1.3-4.6) 01/09/24 23:35 Urine Color Light yellow (Yellow) 01/10/24 00:46 Urine Appearance Clear (CLEAR) 01/10/24 00:46 Urine pH 6 (5-7) 01/10/24 00:46 Ur Specific [place] 1.015 (1.005-1.030) 01/10/24 00:46 Urine Protein Neg (Negative) 01/10/24 00:46 Urine Glucose (UA) Norm (Normal) 01/10/24 00:46 Urine Ketones Negative (Negative) 01/10/24 00:46 Urine Blood Trace (Negative) H 01/10/24 00:46 Urine Nitrate Negative (Negative) 01/10/24 00:46 Urine Bilirubin Neg (Negative) 01/10/24 00:46 Urine Urobilinogen Norm mg/dL (Negative) 01/10/24 00:46 Ur Leukocyte Esterase Negative (Negative) 01/10/24 00:46 Urine RBC 0-4 /hpf (0-2) H 01/10/24 00:46 Urine WBC 0-4 /hpf (0-5) H 01/10/24 00:46 Ur Squamous Epith Cells 0-4 /hpf (0-5) H 01/10/24 00:46 Amorphous Sediment Not Reportable 01/10/24 00:46 Urine Bacteria Trace /hpf (NONE) 01/10/24 00:46 EKG Data EKG 1: I personally reviewed and interpreted this EKG as follows: EKG interpretation date: 01/10/24 EKG interpretation time: 00:24 Prior EKG tracings: not available for review Interpretation: EKG shows a sinus rhythm with a occasional PVCs at [address] elevation is noted. When compared to prior exam done on 22 December atrial fibs is not present. Computer generated interpretation: Sinus rhythm with first-degree AV block with occasional ventricular premature complexes, abnormal EKG, unconfirmed report. Discharge Plan Discharge Patient Disposition: Home Clinical Impression: Headache Qualifiers: Headache type: unspecified Headache chronicity pattern: acute headache I ntractability: not intractable Qualified Code(s): R51.9 - Headache, unspecified Condition: Stable Prescriptions: No Action Eliquis 2.5 mg tablet 2.5 mg PO BID Qty: 60 11RF atorvastatin 40 mg tablet 40 mg PO DAILY brimonidine 0.2 % drops ophthalmic (eye) (DME) Diabetic Shoes with 3 pairs of inserts See Rx Instructions .Route .MEDSUPPLY Qty: 1 0RF Rx Instructions: As directed by the Shoe Anali metoprolol tartrate 50 mg tablet 75 mg PO BID Qty: 90 11RF metformin 1,000 mg tablet 1,000 mg PO BID Qty: 60 11RF timolol maleate 0.5 % drops 1 drp ophthalmic (eye) DAILY Vyzulta 0.024 % drops 1 drp ophthalmic (eye) DAILY Adult Aspirin Regimen 81 mg tablet,delayed release (DR/EC) 81 mg PO QAM glimepiride 4 mg tablet 4 mg PO BID lisinopril 40 mg tablet 40 mg PO QAM dexamethasone 4 mg tablet 4 mg PO TID Qty: 90 0RF Discharge Orders: Discharge ED (Routine); Ordered 01/10/24 Ordered By: Killian Ray Referrals: Pool Hutchinson MD [Primary Care Provider] - Discharge Diet: Usual diet Discharge Activity: Increase activity as tolerated Patient Instructions: General Headache (ED) Activity Restrictions/Additional Instructions: Activity as tolerated. Change positions slowly. Follow-up with neurologist for further evaluation and treatment. Return to ED for new concerns or worsening symptoms. Coding Level of Care Code ED Automotive Customer Experience Advisor for Chg Fwd Documented by User: Killian Ray DO 01/10/24 01:32 HPI - Dizziness 2 General: Chief Complaint: Dizziness Stated Complaint: headache/ dizzy Time Seen by Provider: 01/09/24 23:30 PFSH ED 2 PFSH: Medical History Hemorrhagic stroke Type 2 diabetes mellitus Hypertension Hypercholesteremia Course 2 Vital Signs: Vital signs: Vital Signs Temperature 98.0 F 01/10/24 01:42 Pulse Rate 55 L 01/10/24 01:42 Respiratory Rate 19 H 01/10/24 01:42 Blood Pressure 144/77 01/10/24 01:42 Pulse Oximetry 97 01/10/24 01:42 Oxygen Delivery Me thod Room Air 01/10/24 00:45 MDM - Dizziness Medical Decision Making 68-year-old male patient comes in today with complaints of headache all day with episodes of dizziness tonight starting. Patient had a history of a hemorrhagic stroke in October. Patient has had normal recovery. No long-term deficits have been noted. No focal neural deficits are noted. Patient moves all extremities well. Pupils are equal and reactive. Respirations are even lungs are clear to auscultation. Patient does have an elevated blood pressure of 182/74. Differential diagnosis includes but not limited to intracranial bleed, CVA, anxiety, status post stroke syndrome, elevated blood pressure. CBC and CMP was unremarkable. Blood pressures showed no orthostatic hypotension. EKG showed a sinus rhythm with occasional PVC. Patient was treated for headache with Reglan. Patient was recommended to follow-up with his neurology specialist. This patient was originally seen by FAIZA Virgen.? I agree with his history, evaluation, and treatment. Lab Data 01/09/24 23:35 01/09/24 23:[address] 01/09/24 23:33 IMPRESSION: 1. Negative for intracranial hemorrhage or mass effect. 2. Right frontal chronic appearing encephalomalacia similar to prior exam. 3. Moderate diffuse white matter disease likely reflecting chronic microvascular ischemic changes. Laboratory Results WBC 7.71 10^3/uL (3.29-11.43) 01/09/24 23:35 RBC 4.33 10^6/uL (3.85-5.65) 01/09/24 23:35 Hgb 12.70 g/dL (11.27-16.99) 01/09/24 23:35 Hct 37.2 % (37-53) 01/09/24 23:35 MCV 85.9 fl (82-101) 01/09/24 23:35 MCH 29.3 pg (27-33) 01/09/24 23:35 MCHC 34.1 g/dL (30-55) 01/09/24 23:35 RDW 13.2 % (12.1-15.1) 01/09/24 23:35 Plt Count 160 10^3/cmm (157-399) 01/09/24 23:35 MPV 10.5 fL (7.4-10.4) H 01/09/24 23:35 Neut % (Auto) 50.4 % 01/09/24 23:35 Lymph % (Auto) 37.5 % 01/09/24 23:35 Hinds % (Auto) 6.2 % 01/09/24 23:35 Eos % (Auto) 5.4 % 01/09/24 23:35 Baso % (Auto) 0.4 % 01/09/24 23:35 Neut # (Auto) 3.88 10^3/uL (1.8-7.7) 01/09/24 23:35 Lymph # (Auto) 2.9 10^3/uL (0.8-4.8) 01/09/24 23:35 Hinds # (Auto) 0.5 10^3/uL (0.2-0.9) 01/09/24 23:35 Eos # (Auto) 0.4 10^3/uL (0.0-0.8) 01/09/24 23:35 Baso # (Auto) 0.0 10^3/uL (0.0-0.1) 01/09/24 23:35 Nucleated RBC % (auto) 0 % 01/09/24 23:35 Nucleated RBCs # 0.0 /100WBC 01/09/24 23:35 Sodium 140 mmol/L (136-145) 01/09/24 23:35 Potassium 3.7 mmol/L (3.5-5.1) 01/09/24 23:35 Chloride 103 mmol/L (98-107) 01/09/24 23:35 Carbon Dioxide 22 mmol/L (22-29) 01/09/24 23:35 Anion Gap 18.7 (5-19) 01/09/24 23:35 BUN 18 mg/dL (8-23) 01/09/24 23:35 Creatinine 1.0 mg/dL (0.7-1.2) 01/09/24 23:35 GFR Calculation 74.3 mL/min (90-130) L 01/09/24 23:35 Glucose 167 mg/dL (65-115) H 01/09/24 23:35 Calculated Osmolality 296 mOsm/kg (285-295) H 01/09/24 23:35 Calcium 8.9 mg/dL (8.5-10.5) 01/09/24 23:35 Total Bilirubin 0.3 mg/dL (0.15-1.2) 01/09/24 23:35 AST 17 U/L (0-40) 01/09/24 23:35 ALT 27 U/L (0-41) 01/09/24 23:35 Alkaline Phosphatase 51 U/L (40-130) 01/09/24 23:35 Total Protein 6.7 g/dL (6.6-8.7) 01/09/24 23:35 Albumin 4.0 g/dL (3.5-5.2) 01/09/24 23:35 Globulin 2.7 g/dL (1.3-4.6) 01/09/24 23:35 Urine Color Light yellow (Yellow) 01/10/24 00:46 Urine Appearance Clear (CLEAR) 01/10/24 00:46 Urine pH 6 (5-7) 01/10/24 00:46 Ur Specific [place] 1.015 (1.005-1.030) 01/10/24 00:46 Urine Protein Neg (Negative) 01/10/24 00:46 Urine Glucose (UA) Norm (Normal) 01/10/24 00:46 Urine Ketones Negative (Negative) 01/10/24 00:46 Urine Blood Trace (Negative) H 01/10/24 00:46 Urine Nitrate Negative (Negative) 01/10/24 00:46 Urine Bilirubin Neg (Negative) 01/10/24 00:46 Urine Urobilinogen Norm mg/dL (Negative) 01/10/24 00:46 Ur Leukocyte Esterase Negative (Negative) 01/10/24 00:46 Urine RBC 0-4 /hpf (0-2) H 01/10/24 00:46 Urine WBC 0-4 /hpf (0-5) H 01/10/24 00:46 Ur Squamous Epith Cells 0-4 /hpf (0-5) H 01/10/24 00:46 Amorphous Sediment Not Reportable 01/10/24 00:46 Urine Bacteria Trace /hpf (NONE) 01/10/24 00:46 All radiology interpretation(s) finalized by discharge Discharge Plan Discharge Patient Disposition: Home Clinical Impression: Headache Qualifiers: Headache type: unspecified Headache chronicity pattern: acute headache I ntractability: not intractable Qualified Code(s): R51.9 - Headache, unspecified Condition: Stable Prescriptions: No Action Eliquis 2.5 mg tablet 2.5 mg PO BID Qty: 60 11RF atorvastatin 40 mg tablet 40 mg PO DAILY brimonidine 0.2 % drops ophthalmic (eye) (DME) Diabetic Shoes with 3 pairs of inserts See Rx Instructions .Route .MEDSUPPLY Qty: 1 0RF Rx Instructions: As directed by the Shoe Anali metoprolol tartrate 50 mg tablet 75 mg PO BID Qty: 90 11RF metformin 1,000 mg tablet 1,000 mg PO BID Qty: 60 11RF timolol maleate 0.5 % drops 1 drp ophthalmic (eye) DAILY Vyzulta 0.024 % drops 1 drp ophthalmic (eye) DAILY Adult Aspirin Regimen 81 mg tablet,delayed release (DR/EC) 81 mg PO QAM glimepiride 4 mg tablet 4 mg PO BID lisinopril 40 mg tablet 40 mg PO QAM dexamethasone 4 mg tablet 4 mg PO TID Qty: 90 0RF Discharge Orders: Discharge ED (Routine); Ordered 01/10/24 Ordered By: Killian Ray Referrals: Pool Hutchinson MD [Primary Care Provider] - Discharge Diet: Usual diet Discharge Activity: Increase activity as tolerated Patient Instructions: General Headache (ED) Activity Restrictions/Additional Instructions: Activity as tolerated. Change positions slowly. Follow-up with neurologist for further evaluation and treatment. Return to ED for new concerns or worsening symptoms. Coding Level of Care Code ED Automotive Customer Experience Advisor for Yaa Rubio
--- NOTE | 2024-01-09 23:33 | CTR_ITS ---
PROCEDURE INFORMATION: Exam: CT Head Without Contrast Exam date and time: 01/09/2024 11:43 PM Age: 68 years old Clinical indication: Pain; Headache; Additional info: Dizziness, history of hemorrhagic stroke TECHNIQUE: Imaging protocol: Computed tomography of the head without contrast. Radiation optimization: All CT scans at this facility use at least one of these dose optimization techniques: automated exposure control; mA and/or kV adjustment per patient size (includes targeted exams where dose is matched to clinical indication); or iterative reconstruction. COMPARISON: CT head wo con* [id number] 12/08/2023 5:11 AM RADIATION DOSE METRICS: Total DLP (mGy-cm): 1111 FINDINGS: Brain: Right frontal chronic appearing encephalomalacia similar to prior exam. Moderate diffuse white matter disease likely reflecting chronic microvascular ischemic changes. Cerebral ventricles: No ventriculomegaly. Paranasal sinuses: Visualized sinuses are unremarkable. No fluid levels. Mastoid air cells: Visualized mastoid air cells are well aerated. Bones/joints: Unremarkable. No acute fracture. Soft tissues: Unremarkable. CT/CT head wo con* [id number] IMPRESSION: 1. Negative for intracranial hemorrhage or mass effect. 2. Right frontal chronic appearing encephalomalacia similar to prior exam. 3. Moderate diffuse white matter disease likely reflecting chronic microvascular ischemic changes.
--- NOTE | 2024-01-09 23:34 | ECG_ITS ---
[facility] Test Date: 2024-01-10 Pat Name: Jose Gilliam Department: Room: Gender: Male Drapery Cutter: : 1955 Requested By: Espinoza [place] Order Number: [id number] Amelia MD: Tulio Vides M.D. Measurements Intervals [place] Rate: 62 P: 64 OR: 233 QRS: 11 QRSD: 81 T: 38 QT: 400 QTc: 408 Interpretive Statements SINUS RHYTHM WITH OCCASIONAL VENTRICULAR PREMATURE COMPLEXES Compared to ECG 12/23/2023 21:35:47 First degree AV block now present Atrial fibrillation no longer present Electronically Signed On 01-10-2024 8:47:01 SCHOOL BUS AIDE by Tulio Vides M.D. [id number]
[2024-01-09 23:49] LABS: Basophils % 0.4 %; Eosinophils # 0.4 10^3/uL (0.0-0.8); Eosinophils % 5.4 %; Hematocrit 37.2 % (37-53); Lymphocytes # 2.9 10^3/uL (0.8-4.8); Lymphocytes % 37.5 %; Mean Corpuscular HGB Conc 34.1 g/dL (30-55); Mean Corpuscular Hemoglobin 29.3 pg (27-33); Mean Corpuscular Volume 85.9 fl (82-101); Mean Platelet Volume 10.5 fL (7.4-10.4); Monocytes # 0.5 10^3/uL (0.2-0.9); Monocytes % 6.2 %; Neutrophils # 3.88 10^3/uL (1.8-7.7); Neutrophils % 50.4 %; Nucleated Red Blood Cells % 0 %; Platelet Count 160 10^3/cmm (157-399); Red Blood Count 4.33 10^6/uL (3.85-5.65); Red Cell Distribution Width 13.2 % (12.1-15.1); White Blood Count 7.71 10^3/uL (3.29-11.43)
[2024-01-10] VITALS (9 sets, daily range): BP systolic 131–157; BP diastolic 60–77; PULSE 55–70; RESP 10–24; TEMP 36.7; O2SAT 94–98
[2024-01-10 00:05] LABS: Alanine Aminotransferase 27 U/L (0-41); Alkaline Phosphatase 51 U/L (40-130); Anion Gap 18.7 (5-19); Aspartate Amino Transferase 17 U/L (0-40); Blood Urea Nitrogen 18 mg/dL (8-23); Calcium 8.9 mg/dL (8.5-10.5); Carbon Dioxide 22 mmol/L (22-29); Chloride 103 mmol/L (98-107); Globulin 2.7 g/dL (1.3-4.6); Glomerular Filtration Rate 74.3 mL/min (90-130); Glucose 167 mg/dL (65-115); Osmolality Calculated 296 mOsm/kg (285-295); Potassium 3.7 mmol/L (3.5-5.1); Sodium 140 mmol/L (136-145); Total Bilirubin 0.3 mg/dL (0.15-1.2); Total Protein 6.7 g/dL (6.6-8.7)
[2024-01-10] MEDS: metoclopramide 5 mg/mL SDV 2 mL 10 MG IVP (00:50)
[2024-01-10 01:03] LABS: Add Urine Microscopic? YES; Bilirubin Urine Neg (Negative); Blood Urine Trace (Negative); Glucose Urine UA Norm (Normal); Ketones Urine Negative (Negative); Leukocyte Esterase Urine Negative (Negative); Nitrate Urine Negative (Negative); Protein Urine Neg (Negative); Specific Gravity, Urine 1.015 (1.005-1.030); Urine Appearance Clear (CLEAR); Urine Color Light yellow (Yellow); Urobilinogen Urine Norm (Negative); pH Urine 6 (5-7)
[2024-01-10 01:04] LABS: Bacteria Urine TRACE /hpf; RBC Urine 0-4 /hpf (0-2); Squamous Epithelial Cell Urine 0-4 /hpf (0-5); WBC Urine 0-4 /hpf (0-5)
== END 2024-01-10 01:43 | disposition home or self-care (01) ==
PROVIDERS: Nurse Practitioner Family; Emergency Provider Emergency Medicine; PCP Family Medicine
DX: R51.9 Headache, unspecified (principal); Z79.01 Long term (current) use of anticoagulants; Z79.82 Long term (current) use of aspirin; Z79.84 Long term (current) use of oral hypoglycemic drugs; E11.9 Type 2 diabetes mellitus without complications; I10 Essential (primary) hypertension
CPT/HCPCS: 36415; 70450; 80053; 81001; 85025; 93005; 96374; 99285; J2765

== ENCOUNTER → 2024-02-03 14:49 | Outpatient (BNVA) | payer MEDICARE, SELFPAY | PROVIDERS: PCP Family Medicine; Visit Provider Family Medicine | DX: I10 Essential (primary) hypertension (principal); I61.9 Nontraumatic intracerebral hemorrhage, unspecified; I48.91 Unspecified atrial fibrillation; E11.9 Type 2 diabetes mellitus without complications | CPT/HCPCS: 80053; 80061; 83036; 85025 ==

== ENCOUNTER 2024-02-10 12:19 | Outpatient (RCR) | payer MEDICARE, SELFPAY | END 2024-03-07 23:59 | disposition home or self-care (01) | LOC: SPT 12:19 | PROVIDERS: Visit Provider Internal Medicine | DX: R26.89 Other abnormalities of gait and mobility (principal); M62.81 Muscle weakness (generalized) | CPT/HCPCS: 97110; 97161 ==

== ENCOUNTER 2024-02-14 20:00 | Outpatient (CLI) | payer MEDICARE, SELFPAY | END 2024-02-14 20:01 | disposition home or self-care (01) | LOC: SLEEP 02-15 05:46 | PROVIDERS: Visit Provider Family Medicine | DX: R40.0 Somnolence (principal); G47.33 Obstructive sleep apnea (adult) (pediatric) | CPT/HCPCS: 95810 ==

== ENCOUNTER → 2024-03-07 14:30 | Outpatient (BNVA) | payer MEDICARE, SELFPAY | PROVIDERS: Visit Provider Podiatrist Foot & Ankle Surgery | DX: L60.3 Nail dystrophy (principal); E11.42 Type 2 diabetes mellitus with diabetic polyneuropathy; M20.40 Other hammer toe(s) (acquired), unspecified foot; Z79.84 Long term (current) use of oral hypoglycemic drugs | CPT/HCPCS: 11721 ==

== ENCOUNTER 2024-03-08 06:00 | Outpatient (RCR) | payer MEDICARE, SELFPAY | END 2024-04-07 23:59 | disposition home or self-care (01) | LOC: SPT 06:00 | PROVIDERS: Visit Provider Internal Medicine | DX: R26.89 Other abnormalities of gait and mobility (principal); M62.81 Muscle weakness (generalized) | CPT/HCPCS: 97110 ==

== ENCOUNTER 2024-05-08 14:41 | Outpatient (CLI) | payer MEDICARE, SELFPAY ==
--- NOTE | 2024-05-08 14:45 | CTR_ITS ---
PROCEDURE INFORMATION: Exam: CT Temporal Bones Without Contrast. Exam date and time: 05/08/2024 2:54 PM Age: 68 years old Clinical indication: Patient HX: Left ear hearing loss; Additional info: Hearing loss/other abnormal auditory perceptions, bilateral TECHNIQUE: Imaging protocol: Computed tomography of the temporal bones without contrast. Radiation optimization: All CT scans at this facility use at least one of these dose optimization techniques: automated exposure control; mA and/or kV adjustment per patient size (includes targeted exams where dose is matched to clinical indication); or iterative reconstruction. COMPARISON: CT head wo con* [id number] 01/09/2024 11:43 PM RADIATION DOSE METRICS: Total DLP (mGy-cm): 489.55 FINDINGS: Right inner ear: Inner ear structures including the cochlea and semicircular canals are unremarkable. Right ossicles and middle ear: The middle ear ossicles are intact. Right external auditory canal: Mild soft tissue thickening is seen along the burrell of the bony external auditory canal. Recommend correlation with clinical exam. Right facial nerve canal: Normal. Right jugular foramen: No jugular dehiscence. Right carotid canal: No aberrant carotid canal. Right mastoid air cells: Well aerated mastoid air cells with intact bony septations. Left inner ear: Inner ear structures including the cochlea and semicircular canals are unremarkable. Left ossicles and middle ear: The middle ear ossicles are intact. Left external auditory canal: Mild soft tissue thickening along the burrell of the cartilaginous portion of the external auditory canal. Recommend correlation with clinical exam. Left facial nerve canal: Normal. Left jugular foramen: No jugular dehiscence. Left carotid canal: No aberrant carotid canal. Left mastoid air cells: Well aerated mastoid air cells with intact bony septations. Paranasal sinuses: Moderate mucoperiosteal thickening is seen involving the left maxillary sinus. Mild mucoperiosteal thickening is seen involving the right maxillary sinus. Left maxillary sinus mucous retention cyst versus polyp measuring up to 2.2 cm. Mild mucoperiosteal thickening is seen involving the bilateral ethmoid air cells, the bilateral sphenoid sinuses and bilateral frontal sinuses. Soft tissues: Visualized soft tissues are unremarkable. CT/CT temporal bone wo con* [id number] IMPRESSION: Mild thickening along the burrell of the bilateral external auditory canals which may represent the presence of cerumen. Other etiologies cannot be excluded. Recommend clinical correlation and correlation with direct visualization. Otherwise unremarkable CT of the temporal bones. If there is sensorineural hearing loss, then consider further evaluation with MRI of the internal auditory canals with and without IV contrast.
== END 2024-05-08 14:42 | disposition home or self-care (01) ==
PROVIDERS: PCP Family Medicine; Visit Provider Nurse Practitioner Adult Health
DX: H93.293 Other abnormal auditory perceptions, bilateral (principal); H93.8X3 Other specified disorders of ear, bilateral
CPT/HCPCS: 70480

== ENCOUNTER → 2024-05-09 13:28 | Outpatient (BNVA) | payer MEDICARE, SELFPAY | PROVIDERS: PCP Family Medicine; Visit Provider Podiatrist Foot & Ankle Surgery | DX: L60.3 Nail dystrophy (principal); E11.42 Type 2 diabetes mellitus with diabetic polyneuropathy; M20.41 Other hammer toe(s) (acquired), right foot; M20.42 Other hammer toe(s) (acquired), left foot; Z79.84 Long term (current) use of oral hypoglycemic drugs | CPT/HCPCS: 11721 ==

== ENCOUNTER → 2024-05-30 11:15 | Outpatient (BNVA) | payer MEDICARE, SELFPAY | PROVIDERS: PCP Family Medicine; Visit Provider Clinical Nurse Specialist Adult Health | DX: J02.9 Acute pharyngitis, unspecified (principal) | CPT/HCPCS: 87880 ==

== ENCOUNTER → 2024-06-06 12:39 | Outpatient (BNVA) | payer MEDICARE, SELFPAY | PROVIDERS: PCP Family Medicine; Visit Provider Family Medicine | DX: I61.9 Nontraumatic intracerebral hemorrhage, unspecified (principal); I10 Essential (primary) hypertension; I48.91 Unspecified atrial fibrillation; E11.9 Type 2 diabetes mellitus without complications | CPT/HCPCS: 80053; 80061; 83036; 85025 ==

== ENCOUNTER 2024-06-13 11:53 | Outpatient (RCR) | payer MEDICARE, SELFPAY | END 2024-07-08 23:59 | disposition home or self-care (01) | LOC: SPT 11:53 | PROVIDERS: PCP Family Medicine; Visit Provider Family Medicine | DX: I61.9 Nontraumatic intracerebral hemorrhage, unspecified (principal) | CPT/HCPCS: 97110; 97112; 97162; 97530 ==

== ENCOUNTER 2024-07-09 06:01 | Outpatient (RCR) | payer MEDICARE, SELFPAY | END 2024-08-07 23:59 | disposition home or self-care (01) | LOC: SPT 06:01 | PROVIDERS: PCP Family Medicine; Visit Provider Family Medicine | DX: I61.9 Nontraumatic intracerebral hemorrhage, unspecified (principal) | CPT/HCPCS: 97110; 97112 ==

== ENCOUNTER → 2024-07-17 13:52 | Outpatient (BNVA) | payer MEDICARE, SELFPAY | PROVIDERS: PCP Family Medicine; Visit Provider Podiatrist Foot & Ankle Surgery | DX: L60.3 Nail dystrophy (principal); E11.42 Type 2 diabetes mellitus with diabetic polyneuropathy; M20.40 Other hammer toe(s) (acquired), unspecified foot; Z79.84 Long term (current) use of oral hypoglycemic drugs | CPT/HCPCS: 11721 ==

== ENCOUNTER → 2024-09-06 08:52 | Outpatient (BNVA) | payer MEDICARE, SELFPAY | PROVIDERS: PCP Family Medicine; Visit Provider Family Medicine | DX: I10 Essential (primary) hypertension (principal); I48.91 Unspecified atrial fibrillation; E11.9 Type 2 diabetes mellitus without complications; I61.9 Nontraumatic intracerebral hemorrhage, unspecified | CPT/HCPCS: 80053; 80061; 83036; 85025 ==

== ENCOUNTER → 2024-09-18 13:27 | Outpatient (BNVA) | payer MEDICARE, SELFPAY | PROVIDERS: PCP Family Medicine; Visit Provider Podiatrist Foot & Ankle Surgery | DX: L60.3 Nail dystrophy (principal); E11.42 Type 2 diabetes mellitus with diabetic polyneuropathy; M20.40 Other hammer toe(s) (acquired), unspecified foot; Z79.84 Long term (current) use of oral hypoglycemic drugs | CPT/HCPCS: 11721 ==

== ENCOUNTER 2024-10-12 08:35 | Observation (INO) | payer MEDICARE, SELFPAY ==
[2024-10-12] VITALS (32 sets, daily range): BP systolic 113–163; BP diastolic 65–97; PULSE 61–78; RESP 8–94; TEMP 36.6–36.8; O2SAT 94–99; BMI 30.8; BMI 31.1
--- NOTE | 2024-10-12 08:43 | XRR_ITS ---
PROCEDURE INFORMATION: Exam: XR Chest Exam date and time: 10/12/2024 9:00 AM Age: 69 years old Clinical indication: Cough; Additional info: Dyspnea/cough TECHNIQUE: Imaging protocol: Radiologic exam of the chest. Views: 1 view. COMPARISON: CR XR chest 1V portable [id number] 12/23/2023 10:20 PM FINDINGS: Lungs: Unremarkable. No consolidation. Pleural spaces: Unremarkable. No pleural effusion. No pneumothorax. Heart/Mediastinum: See Vasculature finding. Vasculature: Borderline cardiomegaly and uncoiling of the thoracic aorta. Bones/joints: Unremarkable. XR/XR chest 1V portable [id number] IMPRESSION: No acute findings.
--- NOTE | 2024-10-12 08:43 | ECG_ITS ---
[facility] Test Date: 2024-10-12 Pat Name: Jose Gilliam Department: Room: Gender: Male Activities Concierge: : 1955 Requested By: Gary Mireles Order Number: [id number] Amelia MD: Tulio Vides M.D. Measurements Intervals [place] Rate: 70 P: 0 SD: 0 QRS: 17 QRSD: 96 T: 50 QT: 408 QTc: 442 Interpretive Statements ATRIAL FIBRILLATION Compared to ECG 01/10/2024 00:00:31 Sinus rhythm no longer present Electronically Signed On 10-12-2024 14:40:47 SPREADER OPERATOR by Tulio Vides M.D. [id number]
--- NOTE | 2024-10-12 09:07 | CT_ITS ---
WS: [id number] CT HEAD TECHNIQUE: Noncontrast CT of the head obtained from the skullbase to the vertex. CLINICAL INFORMATION: SYMPTOMS OF ACUTE STROKE COMPARISON: 01/09/2024 DLP: All CT scans at [facility] use at least one of these dose optimization techniques: automated e xposure control; mA and/or kV adjustment per patient size (includes targeted exams where dose is matc hed to clinical indication); or iterative reconstruction. FINDINGS: No evidence of intracranial hemorrhage or mass effect. Ventricular system and basal cisterns are thomas nt. Mild small vessel changes with mild parenchymal volume loss. Chronic infarct RIGHT frontal lobe w ith encephalomalacia. This is unchanged. No extra-axial fluid collections. No evidence of mass or mas s effect. Paranasal sinuses and mastoid air cells are well aerated. .Normal visualized soft tissues. CT/CT head thrombolytic [id number] IMPRESSION: 1. No evidence of intracranial hemorrhage or mass effect. 2. Chronic infarct RIGHT frontal lobe with encephalomalacia unchanged 3. No acute intracranial findings. Notified Gary Cook DO at 10/12/2024 9:18 AM.
[2024-10-12 09:15] LABS: Glucose Point of Care 209 mg/dL (70-110)
[2024-10-12 09:25] LABS: Basophils # 0.1 10^3/uL (0.0-0.1); Basophils % 0.5 %; Eosinophils # 0.2 10^3/uL (0.0-0.8); Eosinophils % 2.4 %; Hematocrit 40.5 % (37-53); Lymphocytes # 1.7 10^3/uL (0.8-4.8); Lymphocytes % 16.8 %; Mean Corpuscular HGB Conc 32.1 g/dL (30-55); Mean Corpuscular Hemoglobin 27.8 pg (27-33); Mean Corpuscular Volume 86.7 fl (82-101); Mean Platelet Volume 10.2 fL (7.4-10.4); Monocytes # 0.5 10^3/uL (0.2-0.9); Monocytes % 4.7 %; Neutrophils # 7.63 10^3/uL (1.8-7.7); Neutrophils % 75.1 %; Nucleated Red Blood Cells % 0 %; Platelet Count 166 10^3/cmm (157-399); Red Blood Count 4.67 10^6/uL (3.85-5.65); Red Cell Distribution Width 13.3 % (12.1-15.1); White Blood Count 10.16 10^3/uL (3.29-11.43)
[2024-10-12 09:39] LABS: INR 0.89 (0.8-1.2); Partial Thromboplastin Time 26.5 SECONDS (23.9-36.7)
[2024-10-12 09:43] LABS: Alanine Aminotransferase 26 U/L (0-41); Albumin Level 4.3 g/dL (3.5-5.2); Alkaline Phosphatase 52 U/L (40-130); Anion Gap 16.1 (5-19); Aspartate Amino Transferase 15 U/L (0-40); Blood Urea Nitrogen 19 mg/dL (8-23); Calcium 9.8 mg/dL (8.5-10.5); Carbon Dioxide 23 mmol/L (22-29); Chloride 103 mmol/L (98-107); Creatinine Clr Calc Pharmacy 110.2621; Globulin 2.9 g/dL (1.3-4.6); Glomerular Filtration Rate 83.7 mL/min (90-130); Glucose 224 mg/dL (65-115); Osmolality Calculated 295 mOsm/kg (285-295); Potassium 4.1 mmol/L (3.5-5.1); Sodium 138 mmol/L (136-145); Total Bilirubin 0.4 mg/dL (0.15-1.2); Total Protein 7.2 g/dL (6.6-8.7)
[2024-10-12 09:44] LABS: Troponin(5th) Baseline 15 ng/L (0-15)
--- NOTE | 2024-10-12 10:43 | ECG_ITS ---
[facility] Test Date: 2024-10-12 Pat Name: Jose Gilliam Department: Room: Gender: Male [employer] Dispatcher: : 1955 Requested By: Gary Mireles Order Number: [id number] Amelia MD: Tulio Vides M.D. Measurements Intervals [place] Rate: 67 P: 0 NV: 0 QRS: 28 QRSD: 89 T: 2 QT: 408 QTc: 432 Interpretive Statements ATRIAL FIBRILLATION Compared to ECG 10/12/2024 09:21:32 No significant changes Electronically Signed On 10-12-2024 14:44:43 EDUCATION ASSISTANT by Tulio Vides M.D. [id number]
--- NOTE | 2024-10-12 10:57 | ED_ITS ---
HPI - Dizziness 2 General: Chief Complaint: Dizziness Stated Complaint: heartburn,dizzy,weak in legs Time Seen by Provider: 10/12/24 08:42 History of Present Illness: HPI Narrative: 69-year-old male presents emergency room complaining of dizziness that began this morning previously had a stroke at some residual left-sided weakness his left-sided weakness seems little bit worse he has some dizziness and difficulty with balance this morning. That is relatively new although the patient states he always has weakness on that side and always has a little bit of balance trouble from previous stroke the dizziness does seem a little bit worse. Patient had a stroke about 1 year ago at that time he had a CTA of the head which showed right fresco swelling thought to be from ischemia he had a CTA of the head and neck which showed his vertebral arteries patent. He had no significant ICA stenosis. Patient previously been on anticoagulation but he stopped both his clopidogrel and his anticoagulant after he had a watchman placed a few weeks ago. Associated symptoms: Denies chest pain or chills Related Data Home Medications Medication Instructions Recorded Confirmed aspirin 81 mg tablet,delayed 81 mg PO QAM 10/28/23 10/12/24 release (Adult Aspirin Regimen) lisinopril 40 mg tablet 40 mg PO QAM 10/28/23 10/12/24 atorvastatin 40 mg tablet 40 mg PO DAILY 11/11/23 10/12/24 brimonidine 0.2 % eye drops 1 drp ophthalmic (eye) BID 10/12/24 10/12/24 dorzolamide 22.3 mg-timolol 6.8 1 drp ophthalmic (eye) BID 10/12/24 10/12/24 mg/mL eye drops glimepiride 4 mg tablet 4 mg PO BID 10/12/24 10/12/24 metformin 1,000 mg tablet 1,000 mg PO DAILY 10/12/24 10/12/24 Previous Rx's Medication Instructions Recorded Diabetic Shoes with 3 pairs of #1 ea 12/03/23 inserts Auto titrating C-pap 6-16 #1 ea 06/06/24 metoprolol tartrate 50 mg tablet 75 mg (1.5 x 50 mg) PO .COMPLEX 09/28/24 #90 tabs Allergies Allergy/AdvReac Type Severity Reaction Status Date / Time No Known Allergies Allergy Verified 09/18/24 13:29 Review of Systems 2 Const: Denies: fever(s) or chills Card: Denies: chest pain Resp: Denies: dyspnea GI: Denies: abdominal pain : Denies: dysuria, urinary frequency or urinary urgency Musc: Denies: neck pain or back pain Skin/Breast: Denies: rash PFSH ED 2 PFSH: Medical History Atrial fibrillation 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 Hemorrhagic stroke Type 2 diabetes mellitus Hypertension Hypercholesteremia Social History Smoking and tobacco/nicotine status: unknown if used tobacco/nicotine Physical Exam 2 Const: COMMON NORMALS: no acute distress GENERAL APPEARANCE: cooperative and comfortable ORIENTATION/CONSCIOUSNESS: Yes awake, Yes oriented to person, Yes oriented to place and Yes oriented to time HENMT: COMMON NORMALS: normocephalic, atraumatic and hearing grossly normal bilaterally HEAD & SCALP: normocephalic and atraumatic Resp: COMMON NORMALS: normal respiratory effort, No retractions, No use of accessory muscles and clear to auscultation bilaterally AUSCULTATION: clear to auscultation bilaterally Cardio: COMMON NORMALS: regular rate, regular rhythm and No murmurs present (Cardio) RATE: regular rate RHYTHM: regular rhythm GI: COMMON NORMALS: Soft to palpation and No hepatosplenomegaly present A USCULTATION: Yes normoactive bowel sounds PALPATION: Yes Soft to palpation, No Tenderness to palpation present (GI), No Guarding due to palpation present (GI) and Yes No hepatosplenomegaly present Extremity: COMMON NORMALS: normal to inspection, capillary refill normal, no clubbing, cyanosis or edema, no calf tenderness and no pedal edema Neuro: SENSORIUM/ORIENTATION: Yes oriented to person, Yes oriented to place and Yes oriented to time OTHER: Equivocal Romberg's although patient states his balance is unchanged Skin: COMMON NORMALS: no rashes or lesions noted GENERAL SKIN EXAM: no rashes or lesions noted Course 2 Vital Signs: Vital signs: Vital Signs Temperature 97.9 F 10/12/24 08:49 Pulse Rate 65 10/12/24 11:00 Respiratory Rate 18 10/12/24 08:49 Blood Pressure 145/88 10/12/24 11:00 Pulse Oximetry 98 10/12/24 11:00 Oxygen Delivery Me thod Room Air 10/12/24 11:00 MDM - Dizziness Medical Decision Making Last known well was last night at around 10:00. He has previously had a stroke he has some of his deficits in the same distribution as a previous stroke. CT did not show anything acute CTA done previously showed no stenosis. Believe patient is having a TIA he is still having some difficulty ataxia most of his symptoms have resolved from when he first woke up we consulted Dr. Canela concurs is likely a TIA. CTA of the head neck did not show any significant stenosis. He has recently stopped both his clopidogrel and his Eliquis because he was had a watchman placed last month. Dr. Canela recommends observation discussed with hospitalist orders written Lab Data 10/12/24 09:18 10/12/24 09:18 Radiology Impressions Chest X-Ray 10/12/24 08:43 IMPRESSION: No acute findings. Head CT 10/12/24 09:07 IMPRESSION: 1. No evidence of intracranial hemorrhage or mass effect. 2. Chronic infarct RIGHT frontal lobe with encephalomalacia unchanged 3. No acute intracranial findings. Notified Gary Cook DO at 10/12/2024 9:18 AM. Head/Neck CTA 10/12/24 11:03 IMPRESSION: 1. No significant cervical ICA stenosis. 2. No flow-limiting intracranial stenosis. 3. Vertebral arteries are patent bilaterally. 4. Chronic RIGHT frontal infarct. Laboratory Results WBC 10.16 10^3/uL (3.29-11.43) 10/12/24 09:18 RBC 4.67 10^6/uL (3.85-5.65) 10/12/24 09:18 Hgb 13.00 g/dL (11.27-16.99) 10/12/24 09:18 Hct 40.5 % (37-53) 10/12/24 09:18 MCV 86.7 fl (82-101) 10/12/24 09:18 MCH 27.8 pg (27-33) 10/12/24 09:18 MCHC 32.1 g/dL (30-55) 10/12/24 09:18 RDW 13.3 % (12.1-15.1) 10/12/24 09:18 Plt Count 166 10^3/cmm (157-399) 10/12/24 09:18 MPV 10.2 fL (7.4-10.4) 10/12/24 09:18 Neut % (Auto) 75.1 % 10/12/24 09:18 Lymph % (Auto) 16.8 % 10/12/24 09:18 [place] % (Auto) 4.7 % 10/12/24 09:18 Eos % (Auto) 2.4 % 10/12/24 09:18 Baso % (Auto) 0.5 % 10/12/24 09:18 Neut # (Auto) 7.63 10^3/uL (1.8-7.7) 10/12/24 09:18 Lymph # (Auto) 1.7 10^3/uL (0.8-4.8) 10/12/24 09:18 [place] # (Auto) 0.5 10^3/uL (0.2-0.9) 10/12/24 09:18 Eos # (Auto) 0.2 10^3/uL (0.0-0.8) 10/12/24 09:18 Baso # (Auto) 0.1 10^3/uL (0.0-0.1) 10/12/24 09:18 Nucleated RBC % (auto) 0 % 10/12/24 09:18 Nucleated RBCs # 0.0 /100WBC 10/12/24 09:18 PT 12.30 SECONDS (12.1-14.9) 10/12/24 09:18 INR 0.89 (0.8-1.2) 10/12/24 09:18 APTT 26.5 SECONDS (23.9-36.7) 10/12/24 09:18 Sodium 138 mmol/L (136-145) 10/12/24 09:18 Potassium 4.1 mmol/L (3.5-5.1) 10/12/24 09:18 Chloride 103 mmol/L (98-107) 10/12/24 09:18 Carbon Dioxide 23 mmol/L (22-29) 10/12/24 09:18 Anion Gap 16.1 (5-19) 10/12/24 09:18 BUN 19 mg/dL (8-23) 10/12/24 09:18 Creatinine 0.9 mg/dL (0.7-1.2) 10/12/24 09:18 GFR Calculation 83.7 mL/min (90-130) L 10/12/24 09:18 Glucose 224 mg/dL (65-115) H 10/12/24 09:18 POC Glucose 209 mg/dL (70-110) H 10/12/24 09:07 Calculated Osmolality 295 mOsm/kg (285-295) 10/12/24 09:18 Calcium 9.8 mg/dL (8.5-10.5) 10/12/24 09:18 Total Bilirubin 0.4 mg/dL (0.15-1.2) 10/12/24 09:18 AST 15 U/L (0-40) 10/12/24 09:18 ALT 26 U/L (0-41) 10/12/24 09:18 Alkaline Phosphatase 52 U/L (40-130) 10/12/24 09:18 Troponin T Baseline 15 ng/L (0-15) 10/12/24 09:18 Troponin T 120 Minute 14.50 ng/L (0-15) 10/12/24 11:51 Delta Troponin T -0.50 ABS# (0-10) L 10/12/24 11:51 Total Protein 7.2 g/dL (6.6-8.7) 10/12/24 09:18 Albumin 4.3 g/dL (3.5-5.2) 10/12/24 09:18 Globulin 2.9 g/dL (1.3-4.6) 10/12/24 09:18 Urine Color Yellow (Yellow) 10/12/24 12:18 Urine Appearance Clear (CLEAR) 10/12/24 12:18 Urine pH 5.5 (5-7) 10/12/24 12:18 Ur Specific [place] 1.018 (1.005-1.030) 10/12/24 12:18 Urine Protein 1+ (Negative) A 10/12/24 12:18 Urine Glucose (UA) 1+ (Normal) H 10/12/24 12:18 Urine Ketones Negative (Negative) 10/12/24 12:18 Urine Blood Negative (Negative) 10/12/24 12:18 Urine Nitrate Negative (Negative) 10/12/24 12:18 Urine Bilirubin Negative (Negative) 10/12/24 12:18 Urine Urobilinogen 1.0 mg/dL (Negative) 10/12/24 12:18 Ur Leukocyte Esterase Negative (Negative) 10/12/24 12:18 Urine RBC 0-2 /hpf (0-2) 10/12/24 12:18 Urine WBC 0-5 /hpf (0-5) 10/12/24 12:18 Ur Squamous Epith Cells 0-5 /hpf (0-5) 10/12/24 12:18 Amorphous Sediment Not Reportable 10/12/24 12:18 Urine Bacteria None seen /hpf (NONE) 10/12/24 12:18 Hyaline Casts 0.40 /lpf 10/12/24 12:18 Urine Opiates Screen Negative ng/mL (Negative) 10/12/24 12:18 Ur Barbiturates Screen Negative ng/mL (Negative) 10/12/24 12:18 Ur Phencyclidine Scrn Negative ng/mL (Negative) 10/12/24 12:18 Ur Amphetamines Screen Negative ng/mL (Negative) 10/12/24 12:18 U Benzodiazepines Scrn Negative ng/mL (Negative) 10/12/24 12:18 Urine Cocaine Screen Negative ng/mL (Negative) 10/12/24 12:18 U Marijuana (THC) Screen Negative ng/mL (Negative) 10/12/24 12:18 All radiology interpretation(s) finalized by discharge Discharge Plan Discharge Patient Disposition: Placed in Observation Clinical Impression: TIA (transient ischemic attack), Atrial fibrillation, Type 2 diabetes mellitus Coding Level of Care Code ED Certified Medical Transcriptionist for Yaa Rubio NIH stroke score NIHSS Level Of Consciousness - 1a: 0 Level Of Consciousness Questions - 1b: Both Correct Level Of Consciousness Commands - 1c: Both Correct Best Gaze - 2: Normal Visual [place] - 3: No Visual Loss Facial Palsy - 4: Normal Motor Arm Right - 5: No Drift Motor Arm Left - 5: Drift Motor Leg Right - 6: No Drift Motor Leg Left - 6: Drift Limb Ataxia - 7: Present In One Limb Sensory - 8: Normal Best Language - 9: No Aphasia Dysarthia - 10: Normal Extinction And Inattention - 11: 0 Score Total Score: 3
--- NOTE | 2024-10-12 11:03 | CT_ITS ---
WS: [id number] CTA HEAD AND NECK TECHNIQUE: Contrast enhanced CTA of the head and neck with coronal and sagittal reformatted images an d maximum intensity projection (MIP) images. NASCET criteria utilized. CLINICAL INFORMATION: Dizziness and balance ataxia COMPARISON: 2022 DLP: 566.[address] scans at [facility] use at least one of these dose optimization techniques: automated e xposure control; mA and/or kV adjustment per patient size (includes targeted exams where dose is matc hed to clinical indication); or iterative reconstruction. FINDINGS: Chronic RIGHT frontal infarct with encephalomalacia. Mastoid air cells are well aerated. Mu cosal thickening in the LEFT maxillary sinus with retention cyst. RIGHT: RIGHT common carotid artery is patent patent. No significant RIGHT ICA stenosis. Mild carotid bulb calcification. RIGHT ICA is patent to the skull base LEFT: LEFT common carotid artery is patent. No significant LEFT ICA stenosis. LEFT ICA is patent to t he skull base. Mild LEFT carotid bulb calcification. INTRACRANIAL CTA: Codominant and patent vertebral arteries bilaterally. Basilar artery is patent. Normal vascularity to the RECREATION OFFICER territory bilaterally. Both ICAs are patent at the skull base. Mild cavernous carotid calcification. Patent anterior communicating artery. Small LEFT A1 segment. No rmal vascularity to the TAINA and MCA territories bilaterally. No evidence of flow-limiting stenosis or aneurysm. Lung apices are well aerated. CT/CT angio headneck* [id number] IMPRESSION: 1. No significant cervical ICA stenosis. 2. No flow-limiting intracranial stenosis. 3. Vertebral arteries are patent bilaterally. 4. Chronic RIGHT frontal infarct.
[2024-10-12] MEDS: iohexol 350 mg/mL 500 mL Btl (per mL) IV (11:22)
--- NOTE | 2024-10-12 11:36 | USCV_ITS ---
Jose Gilliam Age: 69 Gender: M : 1955 Exam Date: 10/12/2024 11:41 Ordering Phys: Gary Cook DO Technologist: PORTIA Exam Location: [facility] [place] Indication: LE PAin HISTORY: Lower extremity pain. PROCEDURES: Venous duplex imaging was performed in only the left lower extremity. The following venous structures were evaluated: common femoral vein, profunda vein, proximal portion of the greater saphenous vein, superficial femoral vein, and the popliteal vein. In addition, the posterior tibial and peroneal trunk were evaluated. Serial compression, augmentation maneuvers, and spectral Doppler flow evaluation were performed. FINDINGS: No evidence of DVT seen in any vessel visualized at this time. CONCLUSIONS No evidence of left lower extremity DVT. Osmar Lainez MD (Electronically Signed) Final Date: 12 October 2024 14:10 S
--- NOTE | 2024-10-12 11:40 | P.CONIM_ITS ---
Providers/Reason For Consult 2 Consulting Physician/Specialty*: Marquez Canela MD neurology and epilepsy Reason for Consult*: Code stroke/acute care emergency department room #14 Primary Care Provider: Pool Hutchinson MD History of Present Illness History of Present Illness Jose Gilliam is a 69 year old male with a history of atrial fibrillation status post Watchman procedure for atrial fibrillation September 21, 2024 and remote right MCA distribution hemorrhagic stroke with residual left-sided weakness and ataxia, brain tumor, diabetic polyneuropathy, type 2 diabetes mellitus, hypercholesterolemia, hearing loss and hypertension. According to the patient, he stopped Eliquis at the time of his Watchman procedure in September 21, 2024. Patient stated that he discontinue Plavix recently. The patient reported that around 2:30 AM on 10/12/2024 he woke up with severe acid reflux. The patient stated that he made it to the bathroom and then he went back to bed. The patient stated that he woke up around 7 AM and was having balance difficulty. The patient's stated that when she woke up she noticed the patient was in the kitchen stumbling around secondary to balance difficulty. The patient also reported left posterior thigh pain since awakening the morning of 10/12/2024. As a result patient was brought to [facility] emergency department. Code stroke was initiated. Noncontrast head CT was obtained at 9:07 AM on 10/12/2024 IMPRESSION: 1. No evidence of intracranial hemorrhage or mass effect. 2. Chronic infarct RIGHT frontal lobe with encephalomalacia unchanged 3. No acute intracranial findings. Point of contact glucose Accu-Chek 209 NIH score = 0 Since the patient's last known well could not be obtained and NIH score = 0 the patient was not a candidate for intravenous thrombolytics and no intravenous thrombolytics were administered. Drug allergies: None Current medications: Aspirin 81 mg p.o. every morning Lipitor 40 mg p.o. daily Brimonidine ophthalmic eyedrop 1 drop in each eye twice a day Timolol ophthalmic eyedrop 1 drop in each eye twice a day Glimepiride 4 mg p.o. twice daily Lisinopril 40 mg p.o. daily Metformin 1000 mg p.o. daily Metoprolol 50 mg tablets to take as directed Past medical history: Atrial fibrillation Status post Watchman procedure 09/21/2024 COVID-19 Obstructive sleep apnea Hemorrhagic right MCA distribution stroke with residual left-sided weakness/ataxia Brain tumor Hearing loss Type 2 diabetes mellitus Diabetic polyneuropathy Hypertension Hypercholesterolemia Bilateral carpal tunnel syndrome Habits: Patient chews tobacco. Patient denied other drug use. The patient was educated on potential health risk associated with tobacco use Family history: Remarkable for a father who had a brain aneurysm Review of Systems 2 General: Reports: 10 or more systems reviewed and unremarkable except in HPI and below Musc: Reports: extremity pain (Left posterior thigh pain since awakening 10/12/2024) Medications/Allergies Home Medications Medication Instructions Recorded Confirmed Last Taken Type aspirin 81 mg tablet,delayed 81 mg PO QAM 10/28/23 10/12/24 10/12/24 History release (Adult Aspirin Regimen) lisinopril 40 mg tablet 40 mg PO QAM 10/28/23 10/12/24 10/12/24 History atorvastatin 40 mg tablet 40 mg PO DAILY 11/11/23 10/12/24 10/12/24 History Diabetic Shoes with 3 pairs of #1 ea 12/03/23 10/12/24 Unknown Rx inserts Auto titrating C-pap 6-16 #1 ea 06/06/24 10/12/24 Unknown Rx metoprolol tartrate 50 mg tablet 75 mg (1.5 x 50 mg) PO .COMPLEX 09/28/24 10/12/24 10/12/24 Rx #90 tabs brimonidine 0.2 % eye drops 1 drp ophthalmic (eye) BID 10/12/24 10/12/24 10/11/24 History dorzolamide 22.3 mg-timolol 6.8 1 drp ophthalmic (eye) BID 10/12/24 10/12/24 10/11/24 History mg/mL eye drops glimepiride 4 mg tablet 4 mg PO BID 10/12/24 10/12/24 10/12/24 History metformin 1,000 mg tablet 1,000 mg PO DAILY 10/12/24 10/12/24 10/12/24 History Allergies Allergy/AdvReac Type Severity Reaction Status Date / Time No Known Allergies Allergy Verified 09/18/24 13:29 PFSH Acute 2 PFSH: Medical History Atrial fibrillation 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 Hemorrhagic stroke Type 2 diabetes mellitus Hypertension Hypercholesteremia Social History Smoking and tobacco/nicotine status: unknown if used tobacco/nicotine Vitals/I&O/Wt Last Vital Signs Temp 97.9 F 10/12/24 08:49 Pulse 65 10/12/24 11:00 Resp 18 10/12/24 08:49 BP 145/88 10/12/24 11:00 Pulse Ox 98 10/12/24 11:00 O2 Del Method Room Air 10/12/24 11:00 Weight last 48 hrs Weight 260 lb Physical Exam 2 Narrative: NIH score = 0 (note: Patient has residual left-sided weakness and ataxia from remote hemorrhagic right MCA distribution stroke) The patient is alert and oriented x 3. Speech fluent. Head normocephalic. Neck supple. Cranial nerves II through XII intact. Pupils 3 to 4 mm round reactive light and accommodation. Extraocular movements intact. There were no nystagmus. Motor testing 5/5 bilaterally. Deep tendon reflex revealed plantar responses bilaterally. Sensory examination patient reports chronic numbness in his lower extremity secondary to polyneuropathy related to diabetes mellitus. [id number] and urtb-efje-[id number] maneuvers were unrevealing. There was no obvious extinction on double sensory stimulation. Throat clear. Lungs clear. Heart regular rhythm and rate. Extremities were negative for cyanosis or edema. Pulses 3+ in the upper and lower extremities bilaterally. Patient does have high arch feet. Note: Patient did complain of left posterior thigh pain since awakening on 10/12/2024. Emergency room physician was notified regarding this and patient will be scheduled for left lower extremity venous Doppler to assess for deep venous thrombosis. Data 10/12/24 09:18 10/12/24 09:18 A&P Assessment and plan (1) TIA (transient ischemic attack): Impression: 1. Transient ischemic attack manifested as worsening ataxia when the patient awakened this morning at approximately 7 AM. Patient's symptoms improved in the emergency room. NIH score = 0. Since the patient last known well could not be determined. The patient was not a candidate for intravenous thrombolytics and no intravenous thrombolytics were administered as well as patient history of hemorrhagic stroke involving the right hemisphere in the past. 2. History of remote hemorrhagic right MCA distribution stroke with residual left-sided ataxia 3. Left posterior thigh pain upon awakening on 10/12/2024 assess for deep venous thrombosis 4. Atrial fibrillation status post Watchman procedure September 21, 2024 (patient no longer on Eliquis or Plavix) 5. Type 2 diabetes mellitus 6. History of brain tumor 7. History of diabetic polyneuropathy Plan: 1. Agree with obtaining venous Dopplers on the left lower extremity to assess for deep venous thrombosis 2. Agree with obtaining CT angiogram of the head and neck to assess for posterior circulation thrombosis 3. Recommend obtaining head MRI with and without contrast to assess for any recurrent brain lesions since the patient has reported history of brain tumor 4. Agree with observation admission 5. Recommend cardiac telemetry monitoring 6. Recommend cardiac evaluation to determine if patient should or whether higher dose of aspirin is indicated or whether anticoagulation is indicated since patient has history of hemorrhagic cerebral infarction 7. Stroke education and stroke pamphlet to be given to family 8. Fall precautions 9. Neurochecks per NIH stroke protocol 10. Continue antiplatelets and cholesterol-lowering agent per NIH stroke protocol 11. Recommend occupational therapy and physical therapy consults since patient has reported increased balance difficulty (2) Ataxia: Consult Attestations 2 Medical Necessity Statement: The patient was evaluated by neurology for acute care/code stroke emergency department room #14 Coding Level of Care Code 51213 Diagnoses TIA (transient ischemic attack) G45.9 Ataxia R27.0
--- NOTE | 2024-10-12 11:49 | PM.HP ---
Providers/Chief Complaint Primary Care Provider: Pool Hutchinson MD Chief Complaint: heartburn,dizzy,weak in legs History of Present Illness Jose Gilliam is a 69 year old male with a past medical history of CVA, residual left lower extremity weakness, Brain tumor, diabetic neuropathy, although functional, can drive, can ambulate, can take care of himself, type 2 diabetes mellitus, who presents [facility] due to complaints of dizziness, unsteadiness on his feet. Patient tells me that he went to bed around 11 PM, he tells me he typically sleeps with a CPAP machine, and it causes to some degree of claustrophobia so he never gets good sleep he tells me he did wake up around 2 AM in the morning to use the bathroom denies any significant dizziness that he could remember, mated to the bathroom. He tells me that he woke up this morning at about 7 AM he noticed that he was dizzy, unsteady on his feet, no other focal weakness, he does have weakness in his left leg chronically, he Presented to [facility] as stroke alert.According to patient, he had a Watchman procedure, in March 2024, since then he has been off his Eliquis for the last 6 months, he is on aspirin 81 mg, he will stop Plavix, denies any recent chest palpitations, stroke alert was activated, head CT in 9:07 AM had no acute findings, CTA head and neck pending, currently alert oriented x 3, denies any significant focal weakness except persistent dizziness and unsteadiness on his feet, no dysuria, hematuria, no nausea, no vomiting, no visual deficits, his NIH stroke scale his NIH stroke scaleIs 1,, patient was out of window for tPA Review of Systems Const: Denies: fever(s) or chills Card: Denies: chest pain Resp: Denies: dyspnea GI: Denies: abdominal pain : Denies: flank pain Neuro: Denies: headache(s) Medications/Allergies Home Medications Medication Instructions Recorded Confirmed Last Taken Type aspirin 81 mg tablet,delayed 81 mg PO QAM 10/28/23 10/12/24 10/12/24 History release (Adult Aspirin Regimen) lisinopril 40 mg tablet 40 mg PO QAM 10/28/23 10/12/24 10/12/24 History atorvastatin 40 mg tablet 40 mg PO DAILY 11/11/23 10/12/24 10/12/24 History Diabetic Shoes with 3 pairs of #1 ea 12/03/23 10/12/24 Unknown Rx inserts Auto titrating C-pap 6-16 #1 ea 06/06/24 10/12/24 Unknown Rx metoprolol tartrate 50 mg tablet 75 mg (1.5 x 50 mg) PO .COMPLEX 09/28/24 10/12/24 10/12/24 Rx #90 tabs brimonidine 0.2 % eye drops 1 drp ophthalmic (eye) BID 10/12/24 10/12/24 10/11/24 History dorzolamide 22.3 mg-timolol 6.8 1 drp ophthalmic (eye) BID 10/12/24 10/12/24 10/11/24 History mg/mL eye drops glimepiride 4 mg tablet 4 mg PO BID 10/12/24 10/12/24 10/12/24 History metformin 1,000 mg tablet 1,000 mg PO DAILY 10/12/24 10/12/24 10/12/24 History Allergies Allergy/AdvReac Type Severity Reaction Status Date / Time No Known Allergies Allergy Verified 09/18/24 13:29 PFSH Acute PFSH: Medical History Atrial fibrillation 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 Hemorrhagic stroke Type 2 diabetes mellitus Hypertension Hypercholesteremia Social History Smoking and tobacco/nicotine status: unknown if used tobacco/nicotine Vitals/I&O/Wt Last Vital Signs Temp 97.9 F 10/12/24 08:49 Pulse 65 10/12/24 11:00 Resp 18 10/12/24 08:49 BP 145/88 10/12/24 11:00 Pulse Ox 98 10/12/24 11:00 O2 Del Method Room Air 10/12/24 11:00 Weight last 48 hrs Weight 117.934 kg Physical Exam Const: COMMON NORMALS: no acute distress and patient oriented x3 HENMT: COMMON NORMALS: normocephalic HEAD & SCALP: normocephalic Resp: COMMON NORMALS: normal respiratory effort, No retractions, No use of accessory muscles and clear to auscultation bilaterally AUSCULTATION: clear to auscultation bilaterally Cardio: COMMON NORMALS: regular rate, regular rhythm, S1 normal heart sound present and S2 normal heart sound present RATE: regular rate RHYTHM: regular rhythm HEART SOUNDS: S1 normal heart sound present and S2 normal heart sound present GI: COMMON NORMALS: Normal to inspection, nondistended, normoactive bowel sounds present, Soft to palpation and non-tender Extremity: COMMON NORMALS: no calf tenderness and no pedal edema Neuro: COMMON NORMALS: patient oriented x3, CN's II-XII intact bilaterally, moves all extremities, no focal motor deficits, no sensory deficits noted and gait normal OTHER: Mrmc-zy-oert normal bilaterally, bweitb-ch-ness normal bilaterally Psych: COMMON NORMALS: mental status grossly normal Data 10/12/24 09:18 10/12/24 09:18 A&P Assessment and plan (1) Atrial fibrillation: (2) Hypertension: (3) Hypercholesteremia: (4) Type 2 diabetes mellitus: (5) Acute CVA (cerebrovascular accident): Plan Concerns for acute CVA -Stroke alert, NIH stroke scale 1, out of tPA window, which persistent dizziness, unsteadiness on his feet -CT head no acute findings -CTA head and neck pending Plan -Continue to monitor closely -Neurochecks -NIH stroke scale -Aspiration precautions -PT OT -Permissive hypertension -Continue aspirin, statin -Telemetry monitoring -CT head and neck pending ? Cardiac echo ? Full code Lovenox for DVT prophylax Type 2 diabetes mellitus, low-dose sliding scale Hypertension, hold blood pressure medication Atrial fibrillation status post Watchman procedure, telemetry monitoring, cardiac echo Full code exodus Lovenox for DVT prophylaxis Attestations Medical Necessity Statement*: Patient requires hospitalization, outpatient observation, for acute CVA Diagnoses Atrial fibrillation I48.91 Hypertension I10 Hypercholesteremia E78.00 Type 2 diabetes mellitus E11.9 Acute CVA (cerebrovascular accident) I63.9
--- NOTE | 2024-10-12 12:17 | USCV_ITS ---
Mane Jose Age: 69 Gender: M : 1955 Exam Date: 10/12/2024 14:10 Ordering Phys: Rico Darden MD Technologist: CT Exam [place] [facility] [place]: BP: 138 / 87 HR: 65 Rhythm: Sinus Technical Quality: Adequate MEASUREMENTS (Male / Female) Normal Values 2D ECHO LVOT Diameter 2.3 cm LV Ejection Fraction MOD 4C 50.8 % LV Ejection Fraction MOD 2C 60.1 % LV Ejection Fraction 2C AL 60.2 % LA Diameter 5.6 cm RA Systolic Volume 4C AL 114.0 ml RA Systolic Volume 4C MOD 109.8 ml LA Sys Volume AL 132.4 cm cubed LA Sys Volume Index AL 51.8 cm cubed/m squared Aorta at Sinotubular Diameter 2.5 cm IVC Diameter 2.5 cm M-MODE LA Ao Ratio MM 1.5 AV Cusp Separation MM 2.5 cm DOPPLER AV Peak Velocity 131.0 cm/s LVOT Peak Velocity 79.0 cm/s AV Area Cont Eq vti 2.8 cm squared AV Area Cont Eq pk 2.4 cm squared MV Peak Velocity 110.0 cm/s MV Area PHT 3.1 cm squared Mitral E to A Ratio 2.3 TR Peak Velocity 136.0 cm/s TR Peak Gradient 7.4 mmHg TV Peak E Velocity 63.0 cm/s PV Peak Velocity 88.0 cm/s FINDINGS Left Ventricle Normal left ventricular size and systolic function, EF ejection fraction of 60%.. Right Ventricle Normal RV size and ejection fraction Right Atrium Moderately increased right atrial size. Left Atrium Severely increased left atrial size. Mitral Valve Mild mitral valve regurgitation. Aortic Valve Minimally thickened aortic valve. Tricuspid Valve Trace tricuspid valve regurgitation. Pulmonic Valve Trace pulmonary valve regurgitation. Pericardium Normal pericardium without effusion. Aorta Normal ascending aorta dimension. IVC Normal inferior vena cava. CONCLUSIONS Normal left ventricular size and systolic function, EF ejection fraction of 60%.. Severely increased left atrial size. Moderately increased right atrial size. Mild mitral valve regurgitation. Minimally thickened aortic valve. Trace pulmonary valve regurgitation. Trace tricuspid valve regurgitation. Estimated pulmonary artery peak systolic pressure within normal limit. No similar previous studies are available for comparison Dr Patricia Manzanares MD [facility] (Electronically Signed) Final Date: 13 October 2024 00:08 S
[2024-10-12 12:33] LABS: Bacteria Urine None Seen /hpf; RBC Urine 0-2 /hpf (0-2); Squamous Epithelial Cell Urine 0-5 /hpf (0-5); WBC Urine 0-5 /hpf (0-5)
[2024-10-12 12:36] LABS: Amphetamines Screen Urine Negative (Negative); Barbiturates Screen Urine Negative (Negative); Benzodiazepines Screen Urine Negative (Negative); Cocaine Screen Urine Negative (Negative); Opiate Screen Urine Negative (Negative); PCP Screen Urine Negative (Negative); THC Screen Urine Negative (Negative)
[2024-10-12 12:38] LABS: Add Urine Microscopic? YES; Bilirubin Urine Negative (Negative); Blood Urine Negative (Negative); Glucose Urine UA 1+ (Normal); Ketones Urine Negative (Negative); Leukocyte Esterase Urine Negative (Negative); Nitrate Urine Negative (Negative); Protein Urine 1+ (Negative); Specific Gravity, Urine 1.018 (1.005-1.030); Urine Color Yellow (Yellow); pH Urine 5.5 (5-7)
[2024-10-12 12:39] LABS: Urine Appearance Clear (CLEAR)
--- NOTE | 2024-10-12 14:37 | ECG_ITS ---
[facility] Test Date: 2024-10-12 Pat Name: Jose Gilliam Department: Room: 278 Gender: Male Research Nurse: : 1955 Requested By: aGry Mireles Order Number: [id number] Amelia MD: Tulio Vides M.D. Measurements Intervals [place] Rate: 62 P: 0 AL: 0 QRS: 24 QRSD: 89 T: 6 QT: 403 QTc: 411 Interpretive Statements ATRIAL FIBRILLATION Compared to ECG 10/12/2024 13:02:12 No significant changes Electronically Signed On 10-12-2024 14:43:49 POPCORN ATTENDANT by Tulio Vides M.D. [email or web address]
[2024-10-12 14:39] LABS: Chol HDL Ratio 2.55 mg/dL (1.0-5.00); Cholesterol 125 mg/dL (0-200); HDL Cholesterol 49 mg/dL (60-100); LDL Cholesterol Calculated 60 mg/dL (50-129); LDL HDL Ratio 1.22 RATIO (0.00-3.22); Triglycerides 80 mg/dL (0-150)
[2024-10-12] MEDS: enoxaparin 40 mg/0.4 mL Syringe SUBCUT (14:57)
[2024-10-12] MEDS: pantoprazole 40 mg SDV IVP (14:57)
[2024-10-12] MEDS: insulin lispro 100 unit/1 mL SUBCUT (14:58)
[2024-10-12] MEDS: aspirin 325 mg EC Tablet PO (14:59)
[2024-10-12 16:05] LABS: Troponin 5 6HR 19.33 ng/L (0-15); Troponin 5 6HR Delta 4.33 ng/L (0-12)
[2024-10-12 16:41] LABS: Glucose Point of Care 122 mg/dL (70-110)
[2024-10-12] MEDS: dorzolamide/timolol Op Soln 10 mL Btl 1 DROP EYE-BOTH (17:37)
[2024-10-12] MEDS: brimonidine 0.2% Op Soln 5 mL Btl 1 DROP EYE-BOTH (17:37)
[2024-10-12 21:47] LABS: Glucose Point of Care 187 mg/dL (70-110)
[2024-10-13] VITALS: BP 142/78; PULSE 84; RESP 20; TEMP 36.6; O2SAT 95
[2024-10-13 04:00] VITALS: BP 164/67; PULSE 70; RESP 19; TEMP 36.4; O2SAT 94
--- NOTE | 2024-10-13 04:37 | P.DS_ITS ---
Discharge Providers Date of Admission: 10/12/24 13:13 Date of Discharge: October 13, 2024 Attending Provider at Admission: Rico Darden MD Attending Provider at Discharge: Rico Darden MD Primary Care Provider: Pool Hutchinson MD Diagnoses at Discharge Discharge Diagnosis (1) Atrial fibrillation: Status: Acute Permanent problem details: 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 (2) Hypertension: Status: Acute (3) Hypercholesteremia: Status: Acute (4) Type 2 diabetes mellitus: Status: Acute (5) Acute CVA (cerebrovascular accident): Status: Resolved Reason for Visit Reason for Visit: heartburn,dizzy,weak in legs Hospital Course Hospital Course Jose Gilliam is a 69 year old male with a past medical history of CVA, residual left lower extremity weakness, Brain tumor, diabetic neuropathy, although functional, can drive, can ambulate, can take care of himself, type 2 diabetes mellitus, who presents [facility] due to complaints of dizziness, unsteadiness on his feet. Patient tells me that he went to bed around 11 PM, he tells me he typically sleeps with a CPAP machine, and it causes to some degree of claustrophobia so he never gets good sleep he tells me he did wake up around 2 AM in the morning to use the bathroom denies any significant dizziness that he could remember, mated to the bathroom. He tells me that he woke up this morning at about 7 AM he noticed that he was dizzy, unsteady on his feet, no other focal weakness, he does have weakness in his left leg chronically, he Presented to [facility] as stroke alert.According to patient, he had a Watchman procedure, in March 2024, since then he has been off his Eliquis for the last 6 months, he is on aspirin 81 mg, he will stop Plavix, denies any recent chest palpitations, stroke alert was activated, head CT in 9:07 AM had no acute findings, CTA head and neck pending, currently alert oriented x 3, denies any significant focal weakness except persistent dizziness and unsteadiness on his feet, no dysuria, hematuria, no nausea, no vomiting, no visual deficits, his NIH stroke scale his NIH stroke scaleIs 1,, patient was out of window for tPA Concerns for acute CVA -Stroke alert, NIH stroke scale 1, out of tPA window, which persistent dizziness, unsteadiness on his feet -CT head no acute findings CTA head and neck - CT/CT angio headneck* [id number] IMPRESSION: 1. No significant cervical ICA stenosis. 2. No flow-limiting intracranial stenosis. 3. Vertebral arteries are patent bilaterally. 4. Chronic RIGHT frontal infarct. -Neurology was consulted -Could not do MRI given Watchman device -Monitored as an inpatient on aspirin, statin, Plavix, blood pressure management -PT OT, -Received telemetry monitoring, no episodes of atrial fibrillation -Overall clinically improved, -Patient will be discharged home, with close follow-up with neurology, cardiology and primary care as outpatient -Discussion with neurology, patient was discharged on aspirin, statin, Plavix Atrial fibrillation status post Watchman procedure, telemetry monitoring, cardiac echo as below -Follow-up with cardiology as outpatient CONCLUSIONS Normal left ventricular size and systolic function, EF ejection fraction of 60%.. Severely increased left atrial size. Moderately increased right atrial size. Mild mitral valve regurgitation. Minimally thickened aortic valve. Trace pulmonary valve regurgitation. Trace tricuspid valve regurgitation. Estimated pulmonary artery peak systolic pressure within normal limit. No similar previous studies are available for comparison -Follow-up with neurology and cardiology about discussion of anticoagulant therapy based on clinical progress Physical Exam Const: COMMON NORMALS: no acute distress and patient oriented x3 Resp: COMMON NORMALS: normal respiratory effort, No retractions, No use of accessory muscles and clear to auscultation bilaterally AUSCULTATION: clear to auscultation bilaterally Cardio: COMMON NORMALS: regular rate, regular rhythm, S1 normal heart sound present and S2 normal heart sound present RATE: regular rate RHYTHM: regular rhythm HEART SOUNDS: S1 normal heart sound present and S2 normal heart sound present GI: COMMON NORMALS: Normal to inspection, nondistended, normoactive bowel sounds present and non-tender Extremity: COMMON NORMALS: no pedal edema Neuro: COMMON NORMALS: patient oriented x3 Psych: COMMON NORMALS: mental status grossly normal Discharge Data Studies Completed and Pending Completed Studies During Hospitalization Category Date Time Status CT head thrombolytic [id number] Stat Cat Scan 10/12/24 09:07 Completed CTA head neck [CT angio headneck* [id number]/[id number]] Stat Cat Scan 10/12/24 11:03 Completed XR chest 1V portable [id number] Stat Exams 10/12/24 08:43 Completed CV. echo complete* 64026 Stat Ultrasound 10/12/24 12:17 Completed US venous duplex lower extremity LT [CV venous duplex Ultrasound 10/12/24 11:36 [place] [address]] Stat Pending at discharge Category Date Time Status Complete Blood Count w/Auto AM LABS Lab 10/13/24 04:00 Ordered Complete Blood Count w/Auto AM LABS Lab 10/14/24 04:00 Ordered Complete Blood Count w/Auto AM LABS Lab 10/15/24 04:00 Ordered Comprehensive Metabolic Panel AM LABS Lab 10/13/24 04:00 Ordered Comprehensive Metabolic Panel AM LABS Lab 10/14/24 04:00 Ordered Comprehensive Metabolic Panel AM LABS Lab 10/15/24 04:00 Ordered Magnesium AM LABS Lab 10/13/24 04:00 Ordered Magnesium AM LABS Lab 10/14/24 04:00 Ordered Magnesium AM LABS Lab 10/15/24 04:00 Ordered Phosphorus AM LABS Lab 10/13/24 04:00 Ordered Phosphorus AM LABS Lab 10/14/24 04:00 Ordered Phosphorus AM LABS Lab 10/15/24 04:00 Ordered MR head wo con* [id number] Routine MRI 10/13/24 04:34 Ordered Radiology Impressions Chest X-Ray 10/12/24 08:43 IMPRESSION: No acute findings. Head CT 10/12/24 09:07 IMPRESSION: 1. No evidence of intracranial hemorrhage or mass effect. 2. Chronic infarct RIGHT frontal lobe with encephalomalacia unchanged 3. No acute intracranial findings. Notified Gary Cook DO at 10/12/2024 9:18 AM. Head/Neck CTA 10/12/24 11:03 IMPRESSION: 1. No significant cervical ICA stenosis. 2. No flow-limiting intracranial stenosis. 3. Vertebral arteries are patent bilaterally. 4. Chronic RIGHT frontal infarct. Laboratory Results WBC 10.16 10^3/uL (3.29-11.43) 10/12/24 09:18 RBC 4.67 10^6/uL (3.85-5.65) 10/12/24 09:18 Hgb 13.00 g/dL (11.27-16.99) 10/12/24 09:18 Hct 40.5 % (37-53) 10/12/24 09:18 MCV 86.7 fl (82-101) 10/12/24 09:18 MCH 27.8 pg (27-33) 10/12/24 09:18 MCHC 32.1 g/dL (30-55) 10/12/24 09:18 RDW 13.3 % (12.1-15.1) 10/12/24 09:18 Plt Count 166 10^3/cmm (157-399) 10/12/24 09:18 MPV 10.2 fL (7.4-10.4) 10/12/24 09:18 Neut % (Auto) 75.1 % 10/12/24 09:18 Lymph % (Auto) 16.8 % 10/12/24 09:18 [place] % (Auto) 4.7 % 10/12/24 09:18 Eos % (Auto) 2.4 % 10/12/24 09:18 Baso % (Auto) 0.5 % 10/12/24 09:18 Neut # (Auto) 7.63 10^3/uL (1.8-7.7) 10/12/24 09:18 Lymph # (Auto) 1.7 10^3/uL (0.8-4.8) 10/12/24 09:18 [place] # (Auto) 0.5 10^3/uL (0.2-0.9) 10/12/24 09:18 Eos # (Auto) 0.2 10^3/uL (0.0-0.8) 10/12/24 09:18 Baso # (Auto) 0.1 10^3/uL (0.0-0.1) 10/12/24 09:18 Nucleated RBC % (auto) 0 % 10/12/24 09:18 Nucleated RBCs # 0.0 /100WBC 10/12/24 09:18 PT 12.30 SECONDS (12.1-14.9) 10/12/24 09:18 INR 0.89 (0.8-1.2) 10/12/24 09:18 APTT 26.5 SECONDS (23.9-36.7) 10/12/24 09:18 Sodium 138 mmol/L (136-145) 10/12/24 09:18 Potassium 4.1 mmol/L (3.5-5.1) 10/12/24 09:18 Chloride 103 mmol/L (98-107) 10/12/24 09:18 Carbon Dioxide 23 mmol/L (22-29) 10/12/24 09:18 Anion Gap 16.1 (5-19) 10/12/24 09:18 BUN 19 mg/dL (8-23) 10/12/24 09:18 Creatinine 0.9 mg/dL (0.7-1.2) 10/12/24 09:18 GFR Calculation 83.7 mL/min (90-130) L 10/12/24 09:18 Glucose 224 mg/dL (65-115) H 10/12/24 09:18 POC Glucose 187 mg/dL (70-110) H 10/12/24 21:38 Calculated Osmolality 295 mOsm/kg (285-295) 10/12/24 09:18 Calcium 9.8 mg/dL (8.5-10.5) 10/12/24 09:18 Total Bilirubin 0.4 mg/dL (0.15-1.2) 10/12/24 09:18 AST 15 U/L (0-40) 10/12/24 09:18 ALT 26 U/L (0-41) 10/12/24 09:18 Alkaline Phosphatase 52 U/L (40-130) 10/12/24 09:18 Troponin T Baseline 15 ng/L (0-15) 10/12/24 09:18 Troponin T 120 Minute 14.50 ng/L (0-15) 10/12/24 11:51 Delta Troponin T -0.50 ABS# (0-10) L 10/12/24 11:51 Troponin T Hi Sens 6Hr 19.33 ng/L (0-15) H 10/12/24 15:32 Troponin T Hi Sens 6Hr Delta 4.33 ng/L (0-12) 10/12/24 15:32 Total Protein 7.2 g/dL (6.6-8.7) 10/12/24 09:18 Albumin 4.3 g/dL (3.5-5.2) 10/12/24 09:18 Globulin 2.9 g/dL (1.3-4.6) 10/12/24 09:18 Triglycerides 80 mg/dL (0-150) 10/12/24 09:18 Cholesterol 125 mg/dL (0-200) 10/12/24 09:18 LDL Cholesterol, Calc 60 mg/dL (50-129) 10/12/24 09:18 HDL Cholesterol 49 mg/dL (60-100) L 10/12/24 09:18 LDL/HDL Ratio 1.22 RATIO (0.00-3.22) 10/12/24 09:18 Cholesterol/HDL Ratio 2.55 mg/dL (1.0-5.00) 10/12/24 09:18 TSH 1.40 uIU/mL (0.27-4.20) 10/12/24 09:18 Urine Color Yellow (Yellow) 10/12/24 12:18 Urine Appearance Clear (CLEAR) 10/12/24 12:18 Urine pH 5.5 (5-7) 10/12/24 12:18 Ur Specific [place] 1.018 (1.005-1.030) 10/12/24 12:18 Urine Protein 1+ (Negative) A 10/12/24 12:18 Urine Glucose (UA) 1+ (Normal) H 10/12/24 12:18 Urine Ketones Negative (Negative) 10/12/24 12:18 Urine Blood Negative (Negative) 10/12/24 12:18 Urine Nitrate Negative (Negative) 10/12/24 12:18 Urine Bilirubin Negative (Negative) 10/12/24 12:18 Urine Urobilinogen 1.0 mg/dL (Negative) 10/12/24 12:18 Ur Leukocyte Esterase Negative (Negative) 10/12/24 12:18 Urine RBC 0-2 /hpf (0-2) 10/12/24 12:18 Urine WBC 0-5 /hpf (0-5) 10/12/24 12:18 Ur Squamous Epith Cells 0-5 /hpf (0-5) 10/12/24 12:18 Amorphous Sediment Not Reportable 10/12/24 12:18 Urine Bacteria None seen /hpf (NONE) 10/12/24 12:18 Hyaline Casts 0.40 /lpf 10/12/24 12:18 Urine Opiates Screen Negative ng/mL (Negative) 10/12/24 12:18 Ur Barbiturates Screen Negative ng/mL (Negative) 10/12/24 12:18 Ur Phencyclidine Scrn Negative ng/mL (Negative) 10/12/24 12:18 Ur Amphetamines Screen Negative ng/mL (Negative) 10/12/24 12:18 U Benzodiazepines Scrn Negative ng/mL (Negative) 10/12/24 12:18 Urine Cocaine Screen Negative ng/mL (Negative) 10/12/24 12:18 U Marijuana (THC) Screen Negative ng/mL (Negative) 10/12/24 12:18 Vitals Last Vital Signs Temp 97.8 F 10/13/24 00:00 Pulse 84 10/13/24 00:00 Resp 20 H 10/13/24 00:00 BP 142/78 10/13/24 00:00 Pulse Ox 95 10/13/24 00:00 O2 Del Method Room Air 10/13/24 00:00 Discharge Plan Discharge Patient Disposition: Home Condition: Stable Prescriptions: Continued (DME) Auto titrating C-pap 6-16 See Rx Instructions .Route .MEDSUPPLY Qty: 1 0RF Rx Instructions: mask and supplies. (DME) Diabetic Shoes with 3 pairs of inserts See Rx Instructions .Route .MEDSUPPLY Qty: 1 0RF Rx Instructions: As directed by the Shoe Anali lisinopril 40 mg tablet 40 mg PO QAM brimonidine 0.2 % drops 1 drp ophthalmic (eye) BID dorzolamide-timolol 22.3-6.8 mg/mL drops 1 drp ophthalmic (eye) BID metformin 1,000 mg tablet 1,000 mg PO DAILY Rx Instructions: Take 1 tablet by mouth twice daily glimepiride 4 mg tablet 4 mg PO BID Rx Instructions: Take 1 tablet by mouth twice daily Discontinued aspirin [Adult Aspirin Regimen] 81 mg tablet,delayed release (DR/EC) 81 mg PO QAM No Action aspirin [Adult Aspirin Regimen] 81 mg tablet,delayed release (DR/EC) 81 mg PO DAILY Qty: 30 0RF clopidogrel 75 mg tablet 75 mg PO DAILY Qty: 30 11RF metoprolol tartrate 50 mg tablet 100 mg PO BID Qty: 120 3RF atorvastatin 40 mg tablet 40 mg PO DAILY Qty: 90 3RF Discharge Orders: Discharge Order (Routine); Ordered 10/13/24 Ordered By: Rico Darden Referrals: Marquez Canela MD [Physician] - 1 week (We have notified your physician's clinic of the need for a follow-up appointment to be scheduled. If you have not heard from them within the next 2 business days, please call them directly. ) Tulio Vides M.D [Physician] - 1 week (We have notified your physician's clinic of the need for a follow-up appointment to be scheduled. If you have not heard from them within the next 2 business days, please call them directly. ) Pool Hutchinson MD [Primary Care Provider] - 10/19/24 11:40 am Discharge Diet: Cardiac Discharge Activity: Resume usual activity Patient Instructions: Aspirin (By mouth), Transient Ischemic Attack (DC), Opioid Safety Activity Restrictions/Additional Instructions: - If you have any recurrent strokelike symptoms please call 911 -If you have any headaches or blurry vision please go to the emergency room Discharge Attestations Time Spent in Discharge Care*: greater than 30 min Quality Metrics Clinical Quality Measures [ Cerebrovascular Accident { Contraindication to Antithrombotic: None; antithrombotic prescribed; Contraindication to Anticoagulation: Overlap treatment not indicated; Contraindication to Statin: None; Statin prescribed;}] Coding Level of Care Code 68063 Total time (in minutes) for Discharge: 45 Diagnoses Atrial fibrillation I48.91 Hypertension I10 Hypercholesteremia E78.00 Type 2 diabetes mellitus E11.9 Acute CVA (cerebrovascular accident) I63.9
[2024-10-13 04:58] VITALS: PULSE 69
[2024-10-13] MEDS: lisinopril 20 mg Tablet 40 MG PO (05:48)
[2024-10-13] MEDS: aspirin 81 mg EC Tablet PO (05:48)
[2024-10-13 06:46] LABS: Glucose Point of Care 185 mg/dL (70-110)
[2024-10-13 06:57] LABS: Basophils % 0.3 %; Eosinophils # 0.3 10^3/uL (0.0-0.8); Eosinophils % 4.2 %; Hematocrit 38.4 % (37-53); Lymphocytes % 29.8 %; Mean Corpuscular Volume 87.5 fl (82-101); Mean Platelet Volume 10.7 fL (7.4-10.4); Monocytes # 0.5 10^3/uL (0.2-0.9); Monocytes % 6.7 %; Neutrophils % 58.6 %; Nucleated Red Blood Cells % 0 %; Platelet Count 157 10^3/cmm (157-399); Red Blood Count 4.39 10^6/uL (3.85-5.65); Red Cell Distribution Width 13.2 % (12.1-15.1); White Blood Count 6.84 10^3/uL (3.29-11.43)
[2024-10-13 07:17] LABS: Alanine Aminotransferase 21 U/L (0-41); Albumin Level 3.8 g/dL (3.5-5.2); Alkaline Phosphatase 51 U/L (40-130); Aspartate Amino Transferase 19 U/L (0-40); Blood Urea Nitrogen 17 mg/dL (8-23); Calcium 9.4 mg/dL (8.5-10.5); Carbon Dioxide 20 mmol/L (22-29); Chloride 104 mmol/L (98-107); Creatinine Clr Calc Pharmacy 110.4212; Globulin 2.5 g/dL (1.3-4.6); Glomerular Filtration Rate 83.7 mL/min (90-130); Glucose 189 mg/dL (65-115); Magnesium 1.7 mg/dL (1.7-2.3); Osmolality Calculated 291 mOsm/kg (285-295); Phosphorus 3.6 mg/dL (2.5-4.5); Sodium 137 mmol/L (136-145); Total Bilirubin 0.9 mg/dL (0.15-1.2); Total Protein 6.3 g/dL (6.6-8.7)
[2024-10-13 07:22] LABS: Anion Gap 16.6 (5-19); Potassium 3.6 mmol/L (3.5-5.1)
[2024-10-13 07:30] VITALS: BP 136/84; PULSE 57; RESP 15; TEMP 36.6; O2SAT 92
[2024-10-13] MEDS: insulin lispro 100 unit/1 mL SUBCUT (08:37)
[2024-10-13] MEDS: atorvastatin 40 mg Tablet PO (08:38)
[2024-10-13] MEDS: dorzolamide/timolol Op Soln 10 mL Btl 1 DROP EYE-BOTH (08:40)
[2024-10-13] MEDS: brimonidine 0.2% Op Soln 5 mL Btl 1 DROP EYE-BOTH (08:40)
--- NOTE | 2024-10-16 10:17 | PC.NURSE ---
Hand Hose Cutter follow up phone call completed 10:15 10/16/2024
== END 2024-10-13 10:45 | disposition home or self-care (01) ==
LOC: ER 11:02 → MEDSURG 13:13
PROVIDERS: Admitting Provider Family Medicine; Emergency Provider Family Medicine; PCP Family Medicine; Visit Provider Family Medicine
DX: I63.9 Cerebral infarction, unspecified (principal); R29.701 NIHSS score 1; I48.91 Unspecified atrial fibrillation; M79.605 Pain in left leg; I10 Essential (primary) hypertension; E78.00 Pure hypercholesterolemia, unspecified; I69.959 Hemiplegia and hemiparesis following unspecified cerebrovascular disease affecting unspecified side; E11.40 Type 2 diabetes mellitus with diabetic neuropathy, unspecified; G47.33 Obstructive sleep apnea (adult) (pediatric); Z99.89 Dependence on other enabling machines and devices; Z79.82 Long term (current) use of aspirin; Z79.02 Long term (current) use of antithrombotics/antiplatelets; F17.220 Nicotine dependence, chewing tobacco, uncomplicated; Z79.84 Long term (current) use of oral hypoglycemic drugs
CPT/HCPCS: 36415; 36416; 70450; 70496; 70498; 71045; 80053; 80061; 80306; 81001; 82962; 83735; 84100; 84443; 84484; 85025; 85610; 85730; 93005; 93306; 93971; 94664; 96372; 96374; 99285; G0378; J1650; J1815; J2470

== ENCOUNTER → 2024-11-03 09:30 | Outpatient (BNVA) | payer MEDICARE, SELFPAY | PROVIDERS: PCP Family Medicine; Visit Provider Internal Medicine | DX: I48.91 Unspecified atrial fibrillation (principal); I10 Essential (primary) hypertension; E78.00 Pure hypercholesterolemia, unspecified; E11.9 Type 2 diabetes mellitus without complications; Z79.84 Long term (current) use of oral hypoglycemic drugs | CPT/HCPCS: 99204 ==

== ENCOUNTER → 2024-11-21 12:57 | Outpatient (BNVA) | payer MEDICARE, SELFPAY | PROVIDERS: PCP Family Medicine; Visit Provider Podiatrist Foot & Ankle Surgery | DX: E11.8 Type 2 diabetes mellitus with unspecified complications (principal); L60.3 Nail dystrophy; E11.42 Type 2 diabetes mellitus with diabetic polyneuropathy; M20.40 Other hammer toe(s) (acquired), unspecified foot; Z79.84 Long term (current) use of oral hypoglycemic drugs | CPT/HCPCS: 11721; 99213 ==

== ENCOUNTER 2024-12-06 09:59 | Emergency (ER) | payer MEDICARE, SELFPAY ==
[2024-12-06 09:59] VITALS: BP 105/67; PULSE 68; RESP 16; TEMP 36.6; O2SAT 98; BMI 30.8
[2024-12-06 10:10] VITALS: BP 105/67; PULSE 68; RESP 18; O2SAT 99
--- NOTE | 2024-12-06 10:11 | XR_ITS ---
WS: [id number] Exam: XR chest 1V portable [id number] Date/Time of Exam: 12/06/2024 10:16 AM Reason For Exam: cp Comparison 10/12/2024. The lungs are fully expanded and clear. Cardiomediastinal silhouette is unremarkable for technique. N o pleural effusion. Bony structures are intact. XR/XR chest 1V portable [id number] IMPRESSION: 1. No acute cardiopulmonary finding.
--- NOTE | 2024-12-06 10:14 | ECG_ITS ---
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 Measurements Intervals [place] Rate: 67 P: 0 [place]: 0 QRS: 14 QRSD: 90 T: 46 QT: 412 QTc: 435 Interpretive Statements ATRIAL FIBRILLATION Compared to ECG 10/12/2024 14:37:08 No significant changes Electronically Signed On 12-07-2024 11:16:05 SHARE DAIRY FARMER by Tulio Vides M.D. [email or web address]
--- NOTE | 2024-12-06 10:28 | ED_ITS ---
HPI - Neck Pain/Injury 2 General: Chief Complaint: Neck Pain/Injury Stated Complaint: Neck pain, Time Seen by Provider: 12/06/24 10:05 Source: patient and EMS Mode of arrival: EMS Limitations: no limitations History of Present Illness: 69-year-old male states that prior to ar rival he had a near syncopal event. He states had multiple near syncopal events in the past states he just gets lightheaded at times. He states that today has been having some neck pain to his head neck pains in the past he states that pain is a sharp pain more in the right side of his neck denies any headache. He denied any slurred speech denies any chest pain he states he feels back to his normal currently Associated symptoms: Denies headache(s) or nausea Related Data Home Medications Medication Instructions Recorded Confirmed brimonidine 0.2 % eye drops 1 drp ophthalmic (eye) BID 10/12/24 12/06/24 dorzolamide 22.3 mg-timolol 6.8 1 drp ophthalmic (eye) BID 10/12/24 12/06/24 mg/mL eye drops glimepiride 4 mg tablet 4 mg PO BID 10/12/24 12/06/24 metformin 1,000 mg tablet 1,000 mg PO BID 10/12/24 12/06/24 aspirin 81 mg tablet,delayed 81 mg PO QAM 12/06/24 12/06/24 release (Adult Aspirin Regimen) atorvastatin 40 mg tablet 40 mg PO QPM 12/06/24 12/06/24 lisinopril 40 mg tablet 40 mg PO QAM 12/06/24 12/06/24 Previous Rx's Medication Instructions Recorded Diabetic Shoes with 3 pairs of #1 12/03/23 inserts Auto titrating C-pap 6-16 #1 06/06/24 clopidogrel 75 mg tablet 75 mg PO DAILY #30 tabs 10/19/24 metoprolol tartrate 50 mg tablet 100 mg (2 x 50 mg) PO BID #120 tabs 11/03/24 blood sugar diagnostic (Blood #200 11/21/24 Glucose Test strips) blood-glucose meter #1 judie 11/21/24 diabetic shoes with 3 inserts #1 judie 11/21/24 amoxicillin 500 mg-potassium 1 tab PO TID #30 tabs 01/29/25 clavulanate 125 mg tablet (Augmentin) Allergies Allergy/AdvReac Type Severity Reaction Status Date / Time No Known Allergies Allergy Verified 11/21/24 13:07 Review of Systems 2 Const: Denies: fever(s), chills, body aches or change in appetite ENMT: Denies: throat pain or dental pain Card: Reports: pre-syncope; Denies: chest pain Resp: Denies: dyspnea GI: Denies: abdominal pain, nausea, vomiting or diarrhea : Denies: dysuria Musc: Reports: neck pain; Denies: back pain Skin/Breast: Denies: rash Neuro: Denies: headache(s) PFSH ED 2 PFSH: Medical History Atrial fibrillation 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 Hemorrhagic stroke Type 2 diabetes mellitus Hypertension Hypercholesteremia Social History Smoking and tobacco/nicotine status: unknown if used tobacco/nicotine Physical Exam 2 Const: COMMON NORMALS: no acute distress, patient oriented x3 and healthy appearing HENMT: COMMON NORMALS: normocephalic and atraumatic HEAD & SCALP: n ormocephalic and atraumatic Eye: COMMON NORMALS: Equal, round and reactive pupils present and EOMs intact bilaterally PUPIL: Yes Equal, round and reactive pupils present Neck/C-Spine: COMMON NORMALS: full ROM, supple and no meningeal signs Chest: COMMONS NORMALS: normal inspection of the chest and normal palpation of entire chest wall Resp: COMMON NORMALS: normal respiratory effort, No retractions, No use of accessory muscles and clear to auscultation bilaterally AUSCULTATION: clear to auscultation bilaterally Cardio: COMMON NORMALS: regular rate, regular rhythm and No murmurs present (Cardio) RATE: regular rate RHYTHM: regular rhythm Extremity: COMMON NORMALS: normal to inspection and full ROM Neuro: COMMON NORMALS: patient oriented x3, moves all extremities and no focal motor deficits MENINGEAL SIGNS: Yes no meningeal signs Psych: COMMON NORMALS: mental status grossly normal, Normal thought process present and cooperative THOUGHT PROCESS: Normal thought process present Skin: COMMON NORMALS: no rashes or lesions noted and no wounds GENERAL SKIN EXAM: no rashes or lesions noted Course 2 Vital Signs: Vital signs: Vital Signs Temperature 97.9 F 12/06/24 09:59 Pulse Rate 90 12/06/24 13:21 Respiratory Rate 18 12/06/24 13:21 Blood Pressure 129/75 12/06/24 13:21 Pulse Oximetry 99 12/06/24 13:21 Oxygen Delivery Me thod Room Air 12/06/24 12:32 MDM - Neck Pain/Injury Medical Decision Making Patient presents after syncopal event he has had multiple syncopal events in the past had some neck pain as well he has had a recent CTA no signs of dissection his symptoms resolved here her troponins are negative no signs of ACS he stable for discharge follow-up with PCP return if worsening. Medical Records I reviewed the patient's medical records. Lab Data I reviewed the patient's lab results. 12/06/24 10:35 12/06/24 10:35 Radiology Impressions Chest X-Ray 12/06/24 10:11 IMPRESSION: 1. No acute cardiopulmonary finding. Laboratory Results WBC 6.30 10^3/uL (3.29-11.43) 12/06/24 10:35 RBC 4.36 10^6/uL (3.85-5.65) 12/06/24 10:35 Hgb 12.20 g/dL (11.27-16.99) 12/06/24 10:35 Hct 38.0 % (37-53) 12/06/24 10:35 MCV 87.2 fl (82-101) 12/06/24 10:35 MCH 28.0 pg (27-33) 12/06/24 10:35 MCHC 32.1 g/dL (30-55) 12/06/24 10:35 RDW 13.2 % (12.1-15.1) 12/06/24 10:35 Plt Count 131 10^3/cmm (157-399) L 12/06/24 10:35 MPV 10.8 fL (7.4-10.4) H 12/06/24 10:35 Neut % (Auto) 63.6 % 12/06/24 10:35 Lymph % (Auto) 21.1 % 12/06/24 10:35 [place] % (Auto) 8.6 % 12/06/24 10:35 Eos % (Auto) 6.2 % 12/06/24 10:35 Baso % (Auto) 0.3 % 12/06/24 10:35 Neut # (Auto) 4.01 10^3/uL (1.8-7.7) 12/06/24 10:35 Lymph # (Auto) 1.3 10^3/uL (0.8-4.8) 12/06/24 10:35 [place] # (Auto) 0.5 10^3/uL (0.2-0.9) 12/06/24 10:35 Eos # (Auto) 0.4 10^3/uL (0.0-0.8) 12/06/24 10:35 Baso # (Auto) 0.0 10^3/uL (0.0-0.1) 12/06/24 10:35 Nucleated RBC % (auto) 0 % 12/06/24 10:35 Nucleated RBCs # 0.0 /100WBC 12/06/24 10:35 Sodium 135 mmol/L (136-145) L 12/06/24 10:35 Potassium 4.1 mmol/L (3.5-5.1) 12/06/24 10:35 Chloride 99 mmol/L (98-107) 12/06/24 10:35 Carbon Dioxide 22 mmol/L (22-29) 12/06/24 10:35 Anion Gap 18.1 (5-19) 12/06/24 10:35 BUN 20 mg/dL (8-23) 12/06/24 10:35 Creatinine 1.2 mg/dL (0.7-1.2) 12/06/24 10:35 GFR Calculation 60.0 mL/min (90-130) L 12/06/24 10:35 Glucose 306 mg/dL (65-115) H 12/06/24 10:35 Calculated Osmolality 294 mOsm/kg (285-295) 12/06/24 10:35 Calcium 8.8 mg/dL (8.5-10.5) 12/06/24 10:35 Total Bilirubin 0.8 mg/dL (0.15-1.2) 12/06/24 10:35 AST 15 U/L (0-40) 12/06/24 10:35 ALT 27 U/L (0-41) 12/06/24 10:35 Alkaline Phosphatase 57 U/L (40-130) 12/06/24 10:35 Troponin T Baseline 13 ng/L (0-15) 12/06/24 10:35 Troponin T 120 Minute 12.94 ng/L (0-15) 12/06/24 12:48 Delta Troponin T -0.06 ABS# (0-10) L 12/06/24 12:48 Total Protein 6.1 g/dL (6.6-8.7) L 12/06/24 10:35 Albumin 4.0 g/dL (3.5-5.2) 12/06/24 10:35 Globulin 2.1 g/dL (1.3-4.6) 12/06/24 10:35 All radiology interpretation(s) finalized by discharge EKG Data EKG 1: I personally reviewed and interpreted this EKG as follows: EKG interpretation date: 12/06/24 EKG interpretation time: 10:14 Interpretation: nsr hr [address] elevation qrs 90 qtc 427 Discharge Plan Discharge Patient Disposition: Home Clinical Impression: Near syncope Condition: Stable Prescriptions: [place] [place] C-pap 6-16 See Rx Instructions .Route .MEDSUPPLY Qty: 1 0RF Rx Instructions: mask and supplies. clopidogrel 75 mg tablet 75 mg PO DAILY Qty: 30 11RF [place] [place] Diabetic Shoes with 3 pairs of inserts See Rx Instructions .Route .MEDSUPPLY Qty: 1 0RF Rx Instructions: As directed by the Mazin Briones [place] [place] with 3 inserts See Rx Instructions .Route .MEDSUPPLY Qty: 1 0RF Rx Instructions: As directed to the mazin briones metoprolol tartrate 50 mg tablet 100 mg PO BID Qty: 120 3RF [place] [place] Blood Glucose Test Strip See Rx Instructions .MEDSUPPLY Qty: 200 12RF Rx Instructions: Use as directed with glucometer to check blood sugar ([facility] [place] blood-glucose meter Misc See Rx Instructions .MEDSUPPLY Qty: 1 0RF Rx Instructions: Use as directed for checking blood sugar amoxicillin-pot clavulanate [Augmentin] 500-125 mg tablet 1 tab PO TID Qty: 30 0RF brimonidine 0.2 % drops 1 drp ophthalmic (eye) BID dorzolamide-timolol 22.3-6.8 mg/mL drops 1 drp ophthalmic (eye) BID metformin 1,000 mg tablet 1,000 mg PO BID glimepiride 4 mg tablet 4 mg PO BID atorvastatin 40 mg tablet 40 mg PO QPM aspirin [Adult Aspirin Regimen] 81 mg tablet,delayed release (DR/EC) 81 mg PO QAM lisinopril 40 mg tablet 40 mg PO QAM Discharge Orders: Discharge ED (Routine); Ordered 12/06/24 Ordered By: Saira Luna Referrals: Pool Hutchinson MD [Primary Care Provider] - 4-7 days Discharge Diet: Advance as tolerated Discharge Activity: Resume usual activity Patient Instructions: Near Syncope (ED) Coding Level of Care Code ED Labor Delivery Specialist for Yaa Rubio
[2024-12-06 10:39] VITALS: BP 107/68; PULSE 72; RESP 18; O2SAT 100
[2024-12-06 10:43] LABS: Basophils % 0.3 %; Eosinophils # 0.4 10^3/uL (0.0-0.8); Eosinophils % 6.2 %; Lymphocytes # 1.3 10^3/uL (0.8-4.8); Lymphocytes % 21.1 %; Mean Corpuscular HGB Conc 32.1 g/dL (30-55); Mean Corpuscular Volume 87.2 fl (82-101); Mean Platelet Volume 10.8 fL (7.4-10.4); Monocytes # 0.5 10^3/uL (0.2-0.9); Monocytes % 8.6 %; Neutrophils # 4.01 10^3/uL (1.8-7.7); Neutrophils % 63.6 %; Nucleated Red Blood Cells % 0 %; Platelet Count 131 10^3/cmm (157-399); Red Blood Count 4.36 10^6/uL (3.85-5.65); Red Cell Distribution Width 13.2 % (12.1-15.1)
[2024-12-06 11:00] LABS: Alanine Aminotransferase 27 U/L (0-41); Alkaline Phosphatase 57 U/L (40-130); Anion Gap 18.1 (5-19); Aspartate Amino Transferase 15 U/L (0-40); Blood Urea Nitrogen 20 mg/dL (8-23); Calcium 8.8 mg/dL (8.5-10.5); Carbon Dioxide 22 mmol/L (22-29); Chloride 99 mmol/L (98-107); Creatinine Clr Calc Pharmacy 82.6966; Globulin 2.1 g/dL (1.3-4.6); Glucose 306 mg/dL (65-115); Osmolality Calculated 294 mOsm/kg (285-295); Potassium 4.1 mmol/L (3.5-5.1); Sodium 135 mmol/L (136-145); Total Bilirubin 0.8 mg/dL (0.15-1.2); Total Protein 6.1 g/dL (6.6-8.7)
[2024-12-06 11:01] LABS: Troponin(5th) Baseline 13 ng/L (0-15)
[2024-12-06 12:01] VITALS: BP 113/71; PULSE 70; RESP 18; O2SAT 98
--- NOTE | 2024-12-06 12:12 | ECG_ITS ---
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 Measurements Intervals [place] Rate: 72 P: 0 OR: 0 QRS: 28 QRSD: 98 T: 49 QT: 410 QTc: 450 Interpretive Statements ATRIAL FLUTTER Compared to ECG 12/06/2024 10:14:21 Atrial fibrillation no longer present Electronically Signed On 12-09-2024 13:43:11 FLATTENING PRESS OPERATOR by Tulio Vides M.D. [email or web address]
[2024-12-06 12:32] VITALS: BP 116/77; PULSE 68; RESP 18; O2SAT 98
[2024-12-06 13:17] LABS: Troponin 5 2HR 12.94 ng/L (0-15)
[2024-12-06 13:18] LABS: Troponin 5 2HR Delta -0.06 ABS# (0-10)
[2024-12-06 13:21] VITALS: BP 129/75; PULSE 90; RESP 18; O2SAT 99
== END 2024-12-06 13:29 | disposition home or self-care (01) ==
PROVIDERS: Emergency Provider Emergency Medicine; PCP Family Medicine
DX: R55 Syncope and collapse (principal); Z79.02 Long term (current) use of antithrombotics/antiplatelets; Z79.82 Long term (current) use of aspirin; Z79.84 Long term (current) use of oral hypoglycemic drugs; E11.9 Type 2 diabetes mellitus without complications; I10 Essential (primary) hypertension
CPT/HCPCS: 36415; 71045; 80053; 84484; 85025; 93005; 99285

== ENCOUNTER → 2025-01-23 13:00 | Outpatient (BNVA) | payer MEDICARE, SELFPAY | PROVIDERS: PCP Family Medicine; Visit Provider Podiatrist Foot & Ankle Surgery | DX: E11.42 Type 2 diabetes mellitus with diabetic polyneuropathy (principal); L60.3 Nail dystrophy; M20.40 Other hammer toe(s) (acquired), unspecified foot; Z79.84 Long term (current) use of oral hypoglycemic drugs | CPT/HCPCS: 11721; 99213 ==

== ENCOUNTER → 2025-01-29 09:04 | Outpatient (BNVA) | payer MEDICARE, SELFPAY | PROVIDERS: PCP Family Medicine; Visit Provider Family Medicine | DX: I10 Essential (primary) hypertension (principal); E11.9 Type 2 diabetes mellitus without complications; I61.9 Nontraumatic intracerebral hemorrhage, unspecified; I48.91 Unspecified atrial fibrillation | CPT/HCPCS: 80053; 80061; 83036; 85025 ==

== ENCOUNTER → 2025-02-06 10:57 | Outpatient (BNVA) | payer MEDICARE, SELFPAY | PROVIDERS: PCP Family Medicine; Referring Provider Family Medicine; Visit Provider Psychiatry & Neurology Neurology | DX: I63.9 Cerebral infarction, unspecified (principal) | CPT/HCPCS: G0463 ==

== ENCOUNTER 2025-03-01 10:13 | Emergency (ER) | payer MEDICARE, SELFPAY ==
[2025-03-01 10:14] VITALS: BP 144/84; PULSE 60; RESP 17; TEMP 36.4; O2SAT 98; BMI 30.8
--- NOTE | 2025-03-01 10:20 | CT_ITS ---
WS: [id number] CT HEAD TECHNIQUE: Noncontrast CT of the head obtained from the skullbase to the vertex. CLINICAL INFORMATION: fall, head injury COMPARISON: None. DLP: 1065.[address] scans at [facility] use at least one of these dose optimization techniques: automated exposure control; mA and/or kV adjustment per patient size (includes targeted exams where dose is matched to clinical indication); or iterative reconstruction. FINDINGS: No evidence of intracranial hemorrhage or mass effect. Ventricular system and basal cisterns are patent. Mild small vessel changes with mild parenchymal volume loss. Chronic encephalomalacia in the RIGHT parasagittal frontal and inferior frontal lobes. Vascular calcification. LEFT parietal scalp hematoma LEFT parietal scalp hematoma. No visualized fractures. Mastoid air cells are well aerated. Mild mucosal thickening in paranasal sinuses. CT/CT head wo con* [id number] IMPRESSION: 1. No evidence of intracranial hemorrhage or mass effect. 2. Mild small vessel changes. Mild parenchymal volume loss. 3. Chronic encephalomalacia in the RIGHT parasagittal frontal and inferior fro ntal lobe. 4. No acute intracranial findings.
--- NOTE | 2025-03-01 10:20 | XR_ITS ---
WS: [id number] Exam: XR chest 1V portable [id number] Date/Time of Exam: 03/01/2025 10:38 AM Reason For Exam: Weakness Comparison 12/06/2024. Lungs are clear and fully inflated. Normal cardiomediastinal silhouette. Bony structures are intact. Signs of cardiac valve intervention. No pleural effusion. XR/XR chest 1V portable [id number] IMPRESSION: 1. No acute cardiopulmonary finding.
--- NOTE | 2025-03-01 10:26 | ED_ITS ---
HPI - Head Injury 2 General: Chief complaint: Syncope Stated complaint: fall Time Seen by Provider: 03/01/25 10:16 History of Present Illness: 69-year-old man with a history of atrial fibrillation with a watchman placement which is not functioning appropriately so he still chronically anticoagulated on Eliquis, history of hemorrhagic stroke with a mild left-sided deficit, type 2 diabetes, hypertension and hyperlipidemia who presents to the emergency room after having a fall and a head injury. He does not remember the fall. He gotten up from bed and the next he remembers his 's asked him why he was bleeding all over the place. He has a laceration to his occipital area. Currently no focal motor deficits. No altered mental status. No chest pain. No abdominal pain. No fevers. No cough. Related Data Home Medications ?Medication ?Instructions ?Recorded ?Confirmed brimonidine 0.2 % eye drops 1 drp ophthalmic (eye) BID 10/12/24 03/01/25 dorzolamide 22.3 mg-timolol 6.8 1 drp ophthalmic (eye) BID 10/12/24 03/01/25 mg/mL eye drops glimepiride 4 mg tablet 4 mg PO BID 10/12/24 5 metformin 1,000 mg tablet 1,000 mg PO BID 10/12/24 atorvastatin 40 mg tablet 40 mg PO QPM 12/06/24 lisinopril 40 mg tablet 20 mg PO BID 01/04/25 apixaban 5 mg tablet (Eliquis) 5 mg PO BID 01/23/25 ketorolac 0.5 % eye drops 1 drp ophthalmic (eye) QID 0 03/01/25 03/01/25 prednisolone acetate 1 % eye 1 drp ophthalmic (eye) QI D 03/01/25 03/01/25 drops,suspension Previous Rx's ?Medication ?Instructions ?Recorded Diabetic Shoes with 3 pairs of #1 ea 12/03/23 inserts Auto titrating C-pap 6-16 #1 ea 06/06/24 metoprolol tartrate 50 mg tablet 100 mg (2 x 50 mg) PO BID #120 tabs 11/03/24 blood-glucose meter #1 judie 11/21/24 diabetic shoes with 3 inserts #1 ea 11/21/24 blood sugar diagnostic (Blood #200 ea 12/18/24 Glucose Test strips) lancets 30 gauge (OneTouch Delica #100 ea 12/18/24 Plus Lancet) cefdinir 300 mg capsule 300 mg PO BID 5 days #10 cap s 03/01/25 Allergies Allergy/AdvReac Type Severity Reaction Status Date / Time No Known Allergies Allergy Verified 01/23/25 13:03 Review of Systems 2 Narrative: Constitutional symptoms: Negative except as documented in HPI. Skin symptoms: Negative except as documented in HPI. Eye symptoms: Negative except as documented in HPI. ENMT symptoms: Negative except as documented in HPI. Respiratory symptoms: Negative except as documented in HPI. Cardiovascular symptoms: Negative except as documented in HPI. Gastrointestinal symptoms: Negative except as documented in HPI. Genitourinary symptoms: Negative except as documented in HPI. Musculoskeletal symptoms: Negative except as documented in HPI. Neurologic symptoms: Negative except as documented in HPI. Psychiatric symptoms: Negative except as documented in HPI. Endocrine symptoms: Negative except as documented in HPI. 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 Hemorrhagic stroke Type 2 diabetes mellitus Hypertension Hypercholesteremia Social History Smoking and tobacco/nicotine status: unknown if used tobacco/nicotine Physical Exam 2 Narrative: EXAM NARRATIVE: General: Alert, no acute distress. Skin: Warm, dry. Head: Normocephalic, laceration and abrasion to right occipital area. Neck: Supple, trachea midline. Eye: Extraocular movements are intact. Ears, nose, mouth and throat: mucosa moist. Cardiovascular: Regular, Normal peripheral perfusion. Respiratory: Lungs are clear to auscultation, respirations are non-labored, breath sounds are equal, Symmetrical chest wall expansion. Gastrointestinal: Soft, Nontender, Non distended Musculoskeletal: Normal ROM, no deformity. Neurological: Alert and oriented, No focal neurological deficit observed. Psychiatric: Cooperative, appropriate mood & affect. Course 2 Vital Signs: Vital signs: Vital Signs Temperature 97.6 F 03/01/25 10:14 Pulse Rate 60 03/01/25 10:14 Respiratory Rate 17 03/01/25 10:14 Blood Pressure 144/84 03/01/25 10:14 Pulse Oximetry 98 03/01/25 10:14 Oxygen Delivery Me thod Room Air 03/01/25 10:14 MDM - Head Injury Medcial Decision Making Medical decision making: Differential diagnosis including but not limited to and based on the above HPI, review of systems and physical exam in this patient with syncope: Vasovagal, orthostatics hypotension, cardiac dysrhythmia, myocardial infarction, infection and hypotension, Orders placed to evaluate differential diagnosis based on the above differential, HPI and physical exam EKG: Time 1039. Rate 59. Atrial fibrillation with controlled rate, No ST-T changes, no ectopy, This was reviewed and interpreted by myself the ER physician at 1045 Repeat EKG: Time 1220. Rate 73. Atrial fibrillation with controlled rate, No ST-T changes, no ectopy, This was reviewed and interpreted by myself the ER physician at 1225. No change from EKG done previously in the ER other than rate has increased slightly. Chest x-ray: No acute process. No infiltrate. No pneumothorax. This was reviewed and interpreted by myself the emergency room physician. I also reviewed the radiology report. CT head: Stable right frontal encephalomalacia. No acute intracranial process. no intracranial hemorrhage, no evidence of infarct. no evidence of acute fracture.This was reviewed and interpreted by myself the ER physician. Lab Review: Laboratory results were reviewed and interpreted by myself the emergency room physician. No leukocytosis. No anemia. No renal failure. No urinary tract infection. No flu COVID or RSV. Troponin is negative. Laceration repair procedure: Time: 1215 Confirmed patient, procedure, side, and site. Time out performed prior to procedure. Verbal consent was obtained by patient and/or responsible constitution party. Indication: Laceration Location: left posterior scalp Length: 5 cm Description: Subcutaneous, linear, slight flap Anesthesia:10 mL 1% lidocaine with epinephrine Area prepared by sterile field with Betadine. # 6, evy were utilized, simple, interrupted technique. Post procedure examination: Circulation, motor, sensory intact. Patient tolerated the procedure well. No complications, bleeding. Total time: 10 min. Pt advised to keep the area clean and dry, wash twice per day with antibacterial soap and water. Return to the ED or PCP in 7-10 days for suture removal. I reviewed the patient's medical record. Reexamination: Patient remained stable. No increased work of breathing. No altered mental status. No focal motor deficits. Evy in place. Bleeding controlled. Assessment and plan: Syncope Head injury Scalp laceration ? Life-saving tetanus administered in the emergency room. Laceration repaired. - Discharged home - Discussed plan with patient. Answered any questions. - Evaluation and treatment of this problem were appropriate in the emergency setting. Lab Data 03/01/25 11:30 03/01/25 11:30 Radiology Impressions Chest X-Ray 03/01/25 10:20 IMPRESSION: 1. No acute cardiopulmonary finding. Head CT 03/01/25 10:20 IMPRESSION: 1. No evidence of intracranial hemorrhage or mass effect. 2. Mild small vessel changes. Mild parenchymal volume loss. 3. Chronic encephalomalacia in the RIGHT parasagittal frontal and inferior frontal lobe. 4. No acute intracranial findings. Laboratory Results WBC 9.13 10^3/uL (3.29-11.43) 03/01/25 11:30 RBC 4.47 10^6/uL (3.85-5.65) 03/01/25 11:30 Hgb 13.10 g/dL (11.27-16.99) 03/01/25 11:30 Hct 39.8 % (37-53) 03/01/25 11:30 MCV 89.0 fl (82-101) 03/01/25 11:30 MCH 29.3 pg (27-33) 03/01/25 11:30 MCHC 32.9 g/dL (30-55) 03/01/25 11:30 RDW 13.3 % (12.1-15.1) 03/01/25 11:30 Plt Count 151 10^3/cmm (157-399) L 03/01/25 11:30 MPV 10.4 fL (7.4-10.4) 03/01/25 11:30 Neut % (Auto) 77.9 % 03/01/25 11:30 Lymph % (Auto) 15.0 % 03/01/25 11:30 [place] % (Auto) 4.5 % 03/01/25 11:30 Eos % (Auto) 2.0 % 03/01/25 11:30 Baso % (Auto) 0.2 % 03/01/25 11:30 Neut # (Auto) 7.11 10^3/uL (1.8-7.7) 03/01/25 11:30 Lymph # (Auto) 1.4 10^3/uL (0.8-4.8) 03/01/25 11:30 [place] # (Auto) 0.4 10^3/uL (0.2-0.9) 03/01/25 11:30 Eos # (Auto) 0.2 10^3/uL (0.0-0.8) 03/01/25 11:30 Baso # (Auto) 0.0 10^3/uL (0.0-0.1) 03/01/25 11:30 Nucleated RBC % (auto) 0 % 03/01/25 11:30 Nucleated RBCs # 0.0 /100WBC 03/01/25 11:30 PT 14.60 SECONDS (12.1-14.9) 03/01/25 11:30 INR 1.06 (0.8-1.2) 03/01/25 11:30 APTT 28.1 SECONDS (23.9-36.7) 03/01/25 11:30 Sodium 137 mmol/L (136-145) 03/01/25 11:30 Potassium 4.2 mmol/L (3.5-5.1) 03/01/25 11:30 Chloride 102 mmol/L (98-107) 03/01/25 11:30 Carbon Dioxide 25 mmol/L (22-29) 03/01/25 11:30 Anion Gap 14.2 (5-19) 03/01/25 11:30 BUN 17 mg/dL (8-23) 03/01/25 11:30 Creatinine 0.9 mg/dL (0.7-1.2) 03/01/25 11:30 GFR Calculation 83.7 mL/min (90-130) L 03/01/25 11:30 Glucose 208 mg/dL (65-115) H 03/01/25 11:30 Calculated Osmolality 292 mOsm/kg (285-295) 03/01/25 11:30 Lactic Acid 2.0 mmol/L (0.5-2.2) 03/01/25 11:30 Calcium 9.3 mg/dL (8.5-10.5) 03/01/25 11:30 Total Bilirubin 0.7 mg/dL (0.15-1.2) 03/01/25 11:30 AST 17 U/L (0-40) 03/01/25 11:30 ALT 26 U/L (0-41) 03/01/25 11:30 Alkaline Phosphatase 54 U/L (40-130) 03/01/25 11:30 Troponin T Baseline 12 ng/L (0-15) 03/01/25 11:30 NT-Pro-B Natriuret Pep 748 pg/mL (0-125) H 03/01/25 11:30 Total Protein 7.1 g/dL (6.6-8.7) 03/01/25 11:30 Albumin 4.3 g/dL (3.5-5.2) 03/01/25 11:30 Globulin 2.8 g/dL (1.3-4.6) 03/01/25 11:30 Urine Color Yellow (Yellow) 03/01/25 11:51 Urine Appearance Clear (CLEAR) 03/01/25 11:51 Urine pH 5.5 (5-7) 03/01/25 11:51 Ur Specific [place] 1.019 (1.005-1.030) 03/01/25 11:51 Urine Protein 1+ (Negative) A 03/01/25 11:51 Urine Glucose (UA) 1+ (Normal) H 03/01/25 11:51 Urine Ketones Negative (Negative) 03/01/25 11:51 Urine Blood Trace (Negative) A 03/01/25 11:51 Urine Nitrate Negative (Negative) 03/01/25 11:51 Urine Bilirubin Negative (Negative) 03/01/25 11:51 Urine Urobilinogen 0.2 mg/dL (Negative) 03/01/25 11:51 Ur Leukocyte Esterase Negative (Negative) 03/01/25 11:51 Urine RBC 0-2 /hpf (0-2) 03/01/25 11:51 Urine WBC 0-5 /hpf (0-5) 03/01/25 11:51 Ur Squamous Epith Cells 0-5 /hpf (0-5) 03/01/25 11:51 Amorphous Sediment Not Reportable 03/01/25 11:51 Urine Bacteria None seen /hpf (NONE) 03/01/25 11:51 Hyaline Casts 0-4 /lpf H 04/24/25 11:51 Influenza A (PCR) Negative (Negative) 03/01/25 10:45 Influenza Type B (PCR) Negative (Negative) 03/01/25 10:45 RSV (PCR) Negative (Negative) 03/01/25 10:45 SARS-CoV-2 (PCR) Negative (Negative) 03/01/25 10:45 All radiology interpretation(s) finalized by discharge Discharge Plan Discharge Patient Disposition: Home Clinical Impression: Laceration of scalp, Head injury, Syncope Condition: Stable Prescriptions: New cefdinir 300 mg capsule 300 mg PO BID 5 Days Qty: 10 0RF No Action (DME) Auto titrating C-pap 6-16 See Rx Instructions .Route .MEDSUPPLY Qty: 1 0RF Rx Instructions: mask and supplies. Eliquis 5 mg tablet 5 mg PO BID (DME) Diabetic Shoes with 3 pairs of inserts See Rx Instructions .Route .MEDSUPPLY Qty: 1 0RF Rx Instructions: As directed by the [facility] ([facility] diabetic shoes with 3 inserts See Rx Instructions .Route .MEDSUPPLY Qty: 1 0RF Rx Instructions: As directed to the [facility]azin [facility]iones metoprolol tartrate 50 mg tablet 100 mg PO BID Qty: 120 3RF (DME) blood-glucose meter Misc See Rx Instructions .MEDSUPPLY Qty: 1 0RF Rx Instructions: Use as directed for checking blood sugar lisinopril 40 mg tablet 20 mg PO BID (DME) lancets [OneTouch Delica Plus Lancet] 30 gauge misc See Rx Instructions .Route Qty: 100 11RF Rx Instructions: once a day (DME) Blood Glucose Test Strip See Rx Instructions .MEDSUPPLY Qty: 200 12RF Rx Instructions: once a day brimonidine 0.2 % drops 1 drp ophthalmic (eye) BID dorzolamide-timolol 22.3-6.8 mg/mL drops 1 drp ophthalmic (eye) BID metformin 1,000 mg tablet 1,000 mg PO BID glimepiride 4 mg tablet 4 mg PO BID ketorolac 0.5 % drops 1 drp ophthalmic (eye) QID prednisolone acetate 1 % drops,suspension 1 drp ophthalmic (eye) QID atorvastatin 40 mg tablet 40 mg PO QPM Discharge Orders: Discharge ED (Routine); Ordered 03/01/25 Ordered By: Chloe Gentile Referrals: Pool Hutchinson MD [Primary Care Provider] - Discharge Diet: Usual diet Discharge Activity: Increase activity as tolerated Patient Instructions: Syncope (ED), Staple Care (ED), Opioid Safety, Pain Management Activity Restrictions/Additional Instructions: Keep the area clean and dry, wash twice per day with antibacterial soap and water. Return to your primary provider or the emergency room in 7 days for suture removal. Avoid any prolonged submersion in water. Avoid all wright water, pond water, streams or other untreated water. Thank you for choosing [facility] for your healthcare needs today. You have been screened and evaluated and felt safe for discharge. Health conditions do change or evolve sometimes and as such it is important that you follow up with your Primary Doctor to be re checked, 3-5 days is a general good time frame for follow up. You are always welcome to return to the ED for re assessment if your symptoms are worsening or you have new concerns Print Language: Romanian Coding Level of Care Code ED Procurement Technician for Yaa Rubio
--- NOTE | 2025-03-01 10:39 | ECG_ITS ---
[facility] Test Date: 2025-03-01 Pat Name: Jose Gilliam Department: Room: Gender: Male Emergency Department Aide: : 1955 Requested By: Chloe Mireles Order Number: [id number] Cisneros MD: Patricia Manzanares M.D. Measurements Intervals [place] Rate: 59 P: 0 MI: 0 QRS: 38 QRSD: 97 T: 51 QT: 425 QTc: 423 Interpretive Statements Atrial fibrillation WITH SLOW VENTRICULAR RESPONSE ABNORMAL RHYTHM ECG Compared to ECG 12/06/2024 11:45:33 No significant changes Electronically Signed On 03-02-2025 10:37:45 CDT by Patricia Manzanares M.D. [email or web address]
[2025-03-01] MEDS: tetanus-dipt-pertussis 0.5 mL SDV IM (11:05)
[2025-03-01 11:42] LABS: Basophils % 0.2 %; Eosinophils # 0.2 10^3/uL (0.0-0.8); Hematocrit 39.8 % (37-53); Lymphocytes # 1.4 10^3/uL (0.8-4.8); Mean Corpuscular HGB Conc 32.9 g/dL (30-55); Mean Corpuscular Hemoglobin 29.3 pg (27-33); Mean Platelet Volume 10.4 fL (7.4-10.4); Monocytes # 0.4 10^3/uL (0.2-0.9); Monocytes % 4.5 %; Neutrophils # 7.11 10^3/uL (1.8-7.7); Neutrophils % 77.9 %; Nucleated Red Blood Cells % 0 %; Platelet Count 151 10^3/cmm (157-399); Red Blood Count 4.47 10^6/uL (3.85-5.65); Red Cell Distribution Width 13.3 % (12.1-15.1); White Blood Count 9.13 10^3/uL (3.29-11.43)
[2025-03-01 11:44] LABS: Influenza A NEGATIVE (Negative); Influenza B NEGATIVE (Negative); Respiratory Syncytial Virus Ce NEGATIVE (Negative); SARS-CoV-2 PCR NEGATIVE (Negative)
[2025-03-01 12:00] LABS: INR 1.06 (0.8-1.2)
[2025-03-01 12:01] LABS: Partial Thromboplastin Time 28.1 SECONDS (23.9-36.7)
[2025-03-01 12:06] LABS: Troponin(5th) Baseline 12 ng/L (0-15)
[2025-03-01 12:16] LABS: Alanine Aminotransferase 26 U/L (0-41); Albumin Level 4.3 g/dL (3.5-5.2); Alkaline Phosphatase 54 U/L (40-130); Anion Gap 14.2 (5-19); Aspartate Amino Transferase 17 U/L (0-40); Blood Urea Nitrogen 17 mg/dL (8-23); Calcium 9.3 mg/dL (8.5-10.5); Carbon Dioxide 25 mmol/L (22-29); Chloride 102 mmol/L (98-107); Creatinine Clr Calc Pharmacy 110.2621; Globulin 2.8 g/dL (1.3-4.6); Glomerular Filtration Rate 83.7 mL/min (90-130); Glucose 208 mg/dL (65-115); NT Pro B Type Natriuretic Pept 748 pg/mL (0-125); Osmolality Calculated 292 mOsm/kg (285-295); Potassium 4.2 mmol/L (3.5-5.1); Sodium 137 mmol/L (136-145); Total Bilirubin 0.7 mg/dL (0.15-1.2); Total Protein 7.1 g/dL (6.6-8.7)
--- NOTE | 2025-03-01 12:20 | ECG_ITS ---
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 Measurements Intervals [place] Rate: 73 P: 0 NC: 0 QRS: 30 QRSD: 89 T: 43 QT: 399 QTc: 443 Interpretive Statements ATRIAL FIBRILLATION ABNORMAL RHYTHM ECG Compared to ECG 03/01/2025 10:39:46 Atrial flutter no longer present Electronically Signed On 03-02-2025 10:43:04 CDT by Patricia Manzanares M.D. [email or web address]
[2025-03-01 12:36] LABS: Bilirubin Urine Negative (Negative); Blood Urine Trace (Negative); Glucose Urine UA 1+ (Normal); Ketones Urine Negative (Negative); Leukocyte Esterase Urine Negative (Negative); Nitrate Urine Negative (Negative); Protein Urine 1+ (Negative); Specific Gravity, Urine 1.019 (1.005-1.030); Urine Appearance Clear (CLEAR); Urine Color Yellow (Yellow); Urobilinogen Urine 0.2 mg/dL (Negative); pH Urine 5.5 (5-7)
[2025-03-01 12:42] LABS: Bacteria Urine None Seen /hpf; Hyaline Casts Urine 0-4 /lpf; RBC Urine 0-2 /hpf (0-2); Squamous Epithelial Cell Urine 0-5 /hpf (0-5); WBC Urine 0-5 /hpf (0-5)
[2025-03-01 12:49] LABS: Add Urine Culture? No
[2025-03-01] MEDS: lidocaine-epi 1% 20 mL INJ INJECTION (12:55)
== END 2025-03-01 13:27 | disposition home or self-care (01) ==
PROVIDERS: Emergency Provider Emergency Medicine; PCP Family Medicine
DX: S01.01XA Laceration without foreign body of scalp, initial encounter (principal); S09.90XA Unspecified injury of head, initial encounter; R55 Syncope and collapse; W19.XXXA Unspecified fall, initial encounter; Z79.01 Long term (current) use of anticoagulants; Z79.84 Long term (current) use of oral hypoglycemic drugs; Z11.52 Encounter for screening for COVID-19; E11.9 Type 2 diabetes mellitus without complications; I10 Essential (primary) hypertension
CPT/HCPCS: 36415; 70450; 71045; 80053; 81001; 83605; 83880; 84484; 85025; 85610; 85730; 87040; 87637; 90471; 90715; 93005; 99285; J9999

== ENCOUNTER → 2025-03-27 13:26 | Outpatient (BNVA) | payer MEDICARE, SELFPAY | PROVIDERS: PCP Family Medicine; Visit Provider Podiatrist Foot & Ankle Surgery | DX: E11.42 Type 2 diabetes mellitus with diabetic polyneuropathy (principal); L60.3 Nail dystrophy; M20.40 Other hammer toe(s) (acquired), unspecified foot; M25.373 Other instability, unspecified ankle; Z79.84 Long term (current) use of oral hypoglycemic drugs | CPT/HCPCS: 11721; 99213 ==

== ENCOUNTER → 2025-04-24 13:37 | Outpatient (BNVA) | payer MEDICARE, SELFPAY | PROVIDERS: PCP Family Medicine; Referring Provider Family Medicine; Visit Provider Psychiatry & Neurology Neurology | DX: R55 Syncope and collapse (principal); R56.9 Unspecified convulsions | CPT/HCPCS: 95812; 95816 ==

== ENCOUNTER → 2025-05-03 09:37 | Outpatient (BNVA) | payer MEDICARE, SELFPAY | PROVIDERS: PCP Family Medicine; Visit Provider Nurse Practitioner Family | DX: I48.91 Unspecified atrial fibrillation (principal); Z79.01 Long term (current) use of anticoagulants; I10 Essential (primary) hypertension; R55 Syncope and collapse; E78.00 Pure hypercholesterolemia, unspecified | CPT/HCPCS: 99214 ==

== ENCOUNTER → 2025-05-30 09:55 | Outpatient (BNVA) | payer MEDICARE, SELFPAY | PROVIDERS: PCP Family Medicine; Visit Provider Family Medicine | DX: I10 Essential (primary) hypertension (principal); E11.9 Type 2 diabetes mellitus without complications; G47.33 Obstructive sleep apnea (adult) (pediatric); I61.9 Nontraumatic intracerebral hemorrhage, unspecified | CPT/HCPCS: 80053; 80061; 83036; 85025 ==

== ENCOUNTER → 2025-05-31 15:22 | Outpatient (BNVA) | payer MEDICARE, SELFPAY | PROVIDERS: PCP Family Medicine; Visit Provider Podiatrist Foot & Ankle Surgery | DX: E11.42 Type 2 diabetes mellitus with diabetic polyneuropathy (principal); L60.3 Nail dystrophy; M20.40 Other hammer toe(s) (acquired), unspecified foot; M25.373 Other instability, unspecified ankle; Z79.84 Long term (current) use of oral hypoglycemic drugs | CPT/HCPCS: 11721 ==

== ENCOUNTER → 2025-08-16 14:53 | Outpatient (BNVA) | payer MEDICARE, SELFPAY | PROVIDERS: PCP Family Medicine; Visit Provider Podiatrist Foot & Ankle Surgery | DX: E11.42 Type 2 diabetes mellitus with diabetic polyneuropathy (principal); L60.3 Nail dystrophy; Z79.84 Long term (current) use of oral hypoglycemic drugs; E11.8 Type 2 diabetes mellitus with unspecified complications | CPT/HCPCS: 11721 ==

== ENCOUNTER → 2025-09-04 09:01 | Outpatient (BNVA) | payer MEDICARE, SELFPAY | PROVIDERS: PCP Family Medicine; Visit Provider Family Medicine | DX: I10 Essential (primary) hypertension (principal); I48.91 Unspecified atrial fibrillation; E11.9 Type 2 diabetes mellitus without complications; I61.9 Nontraumatic intracerebral hemorrhage, unspecified | CPT/HCPCS: 80053; 80061; 83036 ==

== ENCOUNTER → 2025-10-24 07:26 | Outpatient (BNVA) | payer MEDICARE, SELFPAY | PROVIDERS: PCP Family Medicine; Visit Provider Podiatrist Foot & Ankle Surgery | DX: E11.8 Type 2 diabetes mellitus with unspecified complications (principal); L60.3 Nail dystrophy; E11.42 Type 2 diabetes mellitus with diabetic polyneuropathy; M20.40 Other hammer toe(s) (acquired), unspecified foot; Z79.84 Long term (current) use of oral hypoglycemic drugs; M25.371 Other instability, right ankle; M25.372 Other instability, left ankle | CPT/HCPCS: 11721 ==

== ENCOUNTER → 2025-10-30 14:57 | Outpatient (BNVA) | payer MEDICARE, SELFPAY | PROVIDERS: PCP Family Medicine; Visit Provider Internal Medicine | DX: I48.91 Unspecified atrial fibrillation (principal); I10 Essential (primary) hypertension; Z79.01 Long term (current) use of anticoagulants | CPT/HCPCS: 99213 ==